=== PATIENT | female | born 1980 | race Caucasian/White ===

== ENCOUNTER 2017-06-18 23:17 | Inpatient (IN) | payer MEDICAID, OTHER ==
[~2017-06-18] VITALS: Ht 157.5 cm; Wt 67.8 kg
[2017-06-18] MEDS ORDERED: ceFAZolin 2 GM PREMIX 50 ML ONE (23:20)
[2017-06-18] MEDS ORDERED: MORPHINE SULFATE 8 MG/ML INJ ONE ×2 (23:20→23:48)
[2017-06-18] MEDS ORDERED: ONDANSETRON HCL 4 MG/2 ML VIAL ONE (23:20)
[2017-06-18] MEDS ORDERED: DIPHTH/TETANUS/ACEL PERTUSSIS (BOOSTER) 0.5 ML VIAL/PFS IM ONE ×2 (23:20→23:47)
[2017-06-18 23:27] VITALS: O2SAT 97
[2017-06-18 23:35] LABS: I-STAT POTASSIUM 3.1 MMOL/L (3.5-4.9); I-STAT SODIUM 142 MMOL/L (138-146)
[2017-06-18 23:37] LABS: BASOPHIL % 0.3 % (0.0-2.0); EOSINOPHIL # 0.1 TH/MM3 (0-0.4); HEMATOCRIT 40.5 % (35.0-46.0); HEMO FLAGS DIFF FINAL; LYMPH % 40.6 % (9.0-44.0); MEAN CELL VOLUME 86.9 FL (80.0-100.0); MEAN CORPUSCULAR HEMOGLOBIN 29.8 PG (27.0-34.0); MEAN CORPUSCULAR HGB CONC 34.3 % (32.0-36.0); MONO % 9.6 % (0.0-8.0); NEUT % 48.5 % (16.0-70.0); PLATELET COUNT 229 TH/MM3 (150-450); RED BLOOD COUNT 4.67 MIL/MM3 (4.00-5.30); RED CELL DISTRIBUTION WIDTH 12.4 % (11.6-17.2); WHITE BLOOD COUNT 12.4 TH/MM3 (4.0-11.0)
[2017-06-18] MEDS ORDERED: ONDANSETRON HCL 4 MG/2 ML VIAL IV ONE (23:45)
[2017-06-18 23:48] LABS: APTT (PATIENT) 23.8 SEC (24.3-30.1); INTERNATIONAL NORMALIZED RATIO 0.9 RATIO; PROTHROMBIN TIME - PATIENT 10.4 SEC (9.8-11.6)
[2017-06-18] MEDS ORDERED: VANCOMYCIN HCL 1000 MG VIAL ONE (23:48)
[2017-06-18] MEDS ORDERED: IOHEXOL 350 MG/ML 10 ML VIAL (for RAD DIAG) IVCONTRAST ONE (23:50)
[2017-06-18 23:56] LABS: BETA HCG QUANT LESS THAN 1 MIU/ML (0-5)
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
[2017-06-19] VITALS (8 sets, daily range): BP systolic 100–136; BP diastolic 59–103; PULSE 75–90; RESP 16–20; TEMP 98–99; O2SAT 98–100
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
[2017-06-19 00:12] LABS: ALCOHOL LESS THAN 3 MG/DL (0-5)
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
[2017-06-19] MEDS ORDERED: BUPR4MIS SL (00:13)
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
[2017-06-19 00:32] LABS: BLOOD, URINE NEG (NEG); GLUCOSE,URINE NEG (NEG); KETONE, URINE NEG (NEG); NITRITE,URINE NEG (NEG); SQUAMOUS EPITHELIAL CELL URINE 1 /hpf (0-5); URINE COLOR LIGHT-YELLOW (YELLW/STRAW)
[2017-06-19 00:37] LABS: COMMENT (UR) CATH-CULT NOT IND; CULTURE IF INDICATED CATH CULTURE NOT IND
[2017-06-19] MEDS ORDERED: HYDROmorphone HCL PF 1 MG/ML VIAL ONE ×2 (01:22→03:12)
[2017-06-19] MEDS ORDERED: PROPOFOL 200 MG/20 ML AMP ONE (01:51)
[2017-06-19] MEDS ORDERED: SILVER SULFADIAZINE 1% CR 50 GM JAR ONE (02:01)
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
--- NOTE | 2017-06-19 05:04 | RADRPT ---
EXAM DATE/TIME: 06/19/2017 00:00 [facility] COMPARISON: SHOULDER LEFT (1 VW), June 18, 2017, 23:10. INDICATIONS : Post reduction left shoulder. MEDICAL HISTORY : None. SURGICAL HISTORY : None. ENCOUNTER: Initial ACUITY: 1 day PAIN SCORE: 4/10 LOCATION: Left shoulder. FINDINGS: 2 views left shoulder show successful reduction of the previously seen anterior dislocation. Fracture of the greater tuberosity noted. CONCLUSION: Successful reduction of the previously seen anterior dislocation. Acute fracture of the greater tuber osity. Bautista Zavala Jr., MD on June 19, 2017 at 5:01 Board Certified Radiologist. This report was verified electronically.
[2017-06-19] MEDS ORDERED: NALOXONE HCL 0.4 MG/ML AMP IV PUSH PRN (05:15)
[2017-06-19] MEDS ORDERED: HEPARIN SODIUM - SQ 10,000 UNITS/ML VIAL SQ SCH (05:15)
[2017-06-19] MEDS ORDERED: MORPHINE SULFATE 4 MG/ML INJ IV PUSH PRN (05:15)
[2017-06-19] MEDS ORDERED: ONDANSETRON HCL 4 MG/2 ML VIAL IV PRN (05:15)
[2017-06-19] MEDS ORDERED: oxyCODONE/ACETAMINOPHEN 5 MG/325 MG TAB PO PRN (05:15)
[2017-06-19] MEDS ORDERED: Post-op Orders (for Pharmacy) MISC XX ONE ×2 (05:15→13:45)
[2017-06-19] MEDS: SODIUM CHLOR 0.9% 1000 ML INJ 1,000 ML IV SCH ×2 (05:25→15:03)
[2017-06-19] MEDS ORDERED: POVIDONE IODINE 5% (ANTISEPSIS KIT) 4 APPLICATIONS EACH NARE PRN (07:00)
[2017-06-19] MEDS ORDERED: METOPROLOL TARTRATE 25 MG TAB PO PRN (07:00)
[2017-06-19] MEDS ORDERED: CHLORHEXIDINE GLUCONATE 2 % 1 PACK (2 CLOTHS) TOPICAL PRN (07:00)
[2017-06-19] MEDS ORDERED: LACTATED RINGER'S 1000 ML IV PRN (07:00)
[2017-06-19] MEDS ORDERED: INSULIN HUMAN REGULAR 1,000 UNITS/10 ML VIAL SQ PRN (07:00)
[2017-06-19] MEDS ORDERED: SODIUM CHLORID 0.9% 500 ML IV PRN (07:00)
[2017-06-19] MEDS ORDERED: LACTULOSE SYRUP 20 GM/30 ML CUP PO PRN (07:15)
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
[2017-06-19] MEDS: DOCUSATE SODIUM 50 MG/SENNA 8.6 MG TAB PO SCH ×2 (07:58→20:41)
[2017-06-19] MEDS: FAMOTIDINE 20 MG TAB PO SCH ×2 (07:58→20:41)
[2017-06-19] MEDS: diphenhydrAMINE HCL 50 MG/ML VIAL IV PRN ×2 (08:36→23:28)
[2017-06-19] MEDS: SODIUM CHLORIDE 0.9% FLUSH 10 ML FLUSH IV FLUSH SCH ×2 (08:36→20:46)
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
[2017-06-19] MEDS ORDERED: SODIUM CHLORIDE 0.9% 20 ML VIAL IV ONE (09:41)
[2017-06-19] MEDS ORDERED: PHENYLEPH/NS 1000 MCG/10 ML SYR IV ONE (09:41)
[2017-06-19] MEDS ORDERED: PROPOFOL 200 MG/20 ML AMP IV ONE (09:41)
[2017-06-19] MEDS ORDERED: LIDOCAINE HCL 1% PF 5 ML AMPULE OTHER ONE (09:41)
[2017-06-19] MEDS ORDERED: DEXAMETHASONE SOD PHOS 4 MG/ML VIAL IV ONE (09:41)
[2017-06-19] MEDS ORDERED: MIDAZOLAM HCL 2 MG/2 ML VIAL IV ONE (09:41)
[2017-06-19] MEDS ORDERED: ONDANSETRON HCL 4 MG/2 ML VIAL IV PUSH ONE (09:41)
[2017-06-19] MEDS ORDERED: KETOROLAC TROMETHAMINE 60 MG/2 ML (IM) VIAL IM ONE (09:41)
[2017-06-19] MEDS ORDERED: ROCURONIUM INJ 50 MG/5 ML SYRINGE IV PUSH ONE (09:41)
[2017-06-19] MEDS ORDERED: NEOSTIGMINE 3 MG/3 ML SYR IV ONE (09:51)
[2017-06-19] MEDS ORDERED: GLYCOPYRROLATE 1 MG/5 ML SYRINGE IV PUSH ONE (09:51)
[2017-06-19] MEDS ORDERED: LACTATED RINGER'S 1000 ML INJ 1,000 ML IV ONE (10:03)
[2017-06-19] MEDS ORDERED: GENTAMICIN SULFATE 80 MG/2 ML VIAL ONE (12:16)
[2017-06-19] MEDS ORDERED: HYDROmorphone HCL PF 2 MG/ML VIAL ONE (12:35)
[2017-06-19] MEDS ORDERED: DEXAMETHASONE SOD PHOS 4 MG/ML VIAL ONE (12:49)
[2017-06-19] MEDS ORDERED: MIDAZOLAM HCL 2 MG/2 ML VIAL ONE (12:49)
[2017-06-19] MEDS ORDERED: FAMOTIDINE 20 MG/2 ML VIAL ONE (12:49)
[2017-06-19] MEDS ORDERED: ceFAZolin 2 GM PREMIX 50 ML ONE (12:54)
[2017-06-19] MEDS ORDERED: BACITRACIN TOP OINT 15 GM TUBE ONE (13:39)
[2017-06-19] MEDS ORDERED: SODIUM CHLORIDE 0.9% FLUSH 5 ML FLUSH IVF PRN (13:45)
--- NOTE | 2017-06-19 13:45 | PD.OP ---
cc: Giuseppe Israel MD Operative Report Date of Surgery: Jun 19, 2017 Preoperative Diagnosis: Left tibial plateau fracture, left tibia shaft fracture Postoperative Diagnosis: Procedure: Closed reduction of left tibia fractures with manipulation, external fixation left leg, compartment pressure checks left leg Surgeon: Giuseppe Israel Plant Buyer(s): Hamlet Mandel PA-C The surgical procedure was assisted by my physician litigation legal assistant. My P.A. presence was necessary throughout this case for the manipulation and positioning of the surgical extremity. My P.A. was assisting me throughout the duration of this procedure. The skill set of a physician litigation legal assistant was medically necessary to complete this procedure. During the surgical case the technical staff engineer was working at the back table and the physician litigation legal assistant was directly assisting me. Operation and Findings: This patient sustained an injury resulting in comminuted fractures of [left tibial plateau and left tibia shaft]. Patient was seen and evaluated preoperatively and found to have too much swelling to proceed with open reduction internal fixation. Risk and benefits of surgery were discussed in depth with patient and informed consent was confirmed. Surgical site was marked. Patient was brought to operating room and placed on the OR table. Patient was given IV sedation and GETA. Patient received IV antibiotics and timeout procedure was performed. Procedure began with compartment pressure checks of the left calf. The patient had moderate swelling of the calf. The anterior, lateral, and posterior compartments were checked. All compartments were under 25 mmHg of pressure. At this point the patient does not appear to have compartment syndrome. Next the operative leg was prepped with alcohol followed by Hibiclens and draped in the usual sterile fashion. Two small incisions were made along the anterior femur and the tibia. Soft tissue was dissected bluntly. Cannulas were placed down to the cortex of bone. Pin sites were predrilled. Synthes DUDLEY-coated pins were placed into the femur and tibia. Fluoroscopy was used to confirm appropriate pin placement. An external fixator construct was now created with clamps and bars. Next attention was turned to reduction. Traction was applied. Fracture was manipulated. Good alignment of the fracture was obtained. Fluoroscopy was used to confirm appropriate alignment of fracture. The external fixator was now tightened to hold reduction. Sterile dressings were applied. Patient was awakened and transferred to recovery room in stable condition. The soft tissue was reevaluated. Patient did have swelling around the knee and calf but compartments were soft and compressible with no signs of compartment syndrome. Giuseppe Israel MD Jun 19, 2017 13:45
[2017-06-19] MEDS ORDERED: DO NOT ADM ANY ANTICOAGULANT DRUGS PRN (14:04)
[2017-06-19] MEDS ORDERED: *morphine SULFATE 8 MG/ML PERIprocedure ONLY ONE ×2 (14:20→15:22)
[2017-06-19] MEDS ORDERED: *MEPERIDINE 25 MG INJ VIAL PERIprocedural Use ONLY ONE (14:28)
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
[2017-06-19] MEDS: LACTATED RINGER'S 1000 ML INJ 1,000 ML IV SCH (15:40)
[2017-06-19] MEDS: KETOROLAC TROMETHAMINE 30 MG/ML (IVP) VIAL IVP SCH ×2 (15:48→22:21)
--- NOTE | 2017-06-19 16:21 | OTSOAPIP ---
TIME SESSION COMPLETED: PM RECEIVED OCCUPATIONAL THERAPY ORDERS. PATIENT IS OFF FLOOR FOR SURGERY. WILL FOLLOW UP WITH PATIENT TOMORROW. INTERDISCIPLINARY COMMUNICATION: REVIEWED ELECTRONIC MEDICAL RECORD Therapist: Denita Richards OTR/[place] Signature on file
[2017-06-19] MEDS: ACETAMINOPHEN/HYDROcodone 325 MG/10 MG TAB PO PRN (18:51)
[2017-06-19] MEDS: MORPHINE SULFATE 4 MG/ML INJ IV PUSH PRN (20:45)
[2017-06-19] MEDS: SODIUM CHLORIDE 0.9% FLUSH 5 ML FLUSH IVF SCH (20:46)
[2017-06-19 20:54] LABS: AUTOMATED NEUTROPHIL # 8.3 TH/MM3 (1.8-7.7); HEMATOCRIT 34.2 % (35.0-46.0); HEMO FLAGS DIFF FINAL; LYMPHOCYTE # 0.7 TH/MM3 (1.0-4.8); MEAN CELL VOLUME 87.2 FL (80.0-100.0); MEAN CORPUSCULAR HEMOGLOBIN 29.6 PG (27.0-34.0); MEAN CORPUSCULAR HGB CONC 33.9 % (32.0-36.0); PLATELET COUNT 168 TH/MM3 (150-450); RED BLOOD COUNT 3.92 MIL/MM3 (4.00-5.30); RED CELL DISTRIBUTION WIDTH 12.4 % (11.6-17.2); WHITE BLOOD COUNT 9.5 TH/MM3 (4.0-11.0)
[2017-06-19 21:21] LABS: BICARBONATE 23.9 MEQ/L (21.0-32.0); POTASSIUM 3.7 MEQ/L (3.5-5.1)
[2017-06-20] MEDS: SODIUM CHLOR 0.9% 1000 ML INJ 1,000 ML IV SCH ×3 (01:03→21:03)
[2017-06-20] MEDS: LACTATED RINGER'S 1000 ML INJ 1,000 ML IV SCH ×2 (02:10→14:40)
[2017-06-20 04:23] VITALS: BP 102/60; PULSE 74; RESP 18; TEMP 97.7; O2SAT 98
[2017-06-20] MEDS: KETOROLAC TROMETHAMINE 30 MG/ML (IVP) VIAL IVP SCH ×3 (06:21→22:15)
--- NOTE | 2017-06-20 06:33 | PD.ORT.PN ---
Subjective Subjective Remarks POD 1 s/p exfix left tibial shaft and plateau fracture s/p left greater tuberosity fracture of humerus doing well. pain controlled. resting comfortably. Objective Vitals Vital Signs Date Time Temp Pulse Resp B/P (MAP) Pulse Ox O2 Delivery O2 Flow Rate FiO2 06/20/17 04:23 97.7 74 18 102/60 (74) 98 06/19/17 23:23 98.5 79 18 100/59 (73) 98 06/19/17 19:40 98.1 75 18 104/64 (77) 98 06/19/17 16:00 78 16 108/70 (83) 98 Room Air 06/19/17 16:00 98.0 76 16 113/75 (88) 98 06/19/17 15:30 80 16 121/79 (93) 99 Room Air 06/19/17 15:00 80 16 118/72 (87) 98 Room Air 06/19/17 14:45 82 16 119/79 (92) 98 Room Air 06/19/17 14:30 84 16 118/81 (93) 98 Room Air 06/19/17 14:15 84 16 119/80 (93) 100 Room Air 06/19/17 14:04 98.3 86 16 120/79 (93) 100 06/19/17 08:00 99.0 84 16 104/68 (80) 99 I/O 06/19/17 06/19/17 06/19/17 06/20/17 06/20/17 06/20/17 07:00 15:00 23:00 07:00 15:00 23:00 Intake Total 1000 ml 700 ml 480 ml Output Total 600 ml 2570 ml 1700 ml Balance 400 ml -1870 ml -1220 ml Intake Oral 480 ml IV Total 1000 ml Other 700 ml Output Urine Total 600 ml 2550 ml 1700 ml Estimated Blood Loss 20 ml # Voids 1 # Bowel Movements 0 Result Diagram: 06/19/17203106/19/172031 Imaging Last 24 hours Impressions Shoulder X-Ray 06/19/17 0000 Signed Impressions: Service Date/Time: Monday, June 19, 2017 00:00 - CONCLUSION: Successful reduction of the previously seen anterior dislocation. Acute fracture of the greater tuberosity. Bautista Zavala Jr., MD Pelvis X-Ray 06/18/17 2328 Signed Impressions: Service Date/Time: Sunday, June 18, 2017 23:10 - CONCLUSION: Unremarkable examination of the pelvis. Bautista Zavala Jr., MD Head CT 06/18/172328 Signed Impressions: Service Date/Time: Sunday, June 18, 2017 23:40 - CONCLUSION: Normal examination. Bautista Zavala Jr., MD Chest X-Ray 06/18/172328 Signed Impressions: Service Date/Time: Sunday, June 18, 2017 23:10 - CONCLUSION: 1. Left proximal humeral fracture. 2. No acute intrathoracic abnormality. Bautista Zavala Jr., MD Chest CT 06/18/172328 Signed Impressions: Service Date/Time: Sunday, June 18, 2017 23:45 - CONCLUSION: 1. Acute fracture of the left proximal humerus partially seen. 2. No acute intrathoracic abnormality. Bautista Zavala Jr., MD Cervical Spine CT 06/18/172328 Signed Impressions: Service Date/Time: Sunday, June 18, 2017 23:40 - CONCLUSION: Normal examination. Bautista Zavala Jr., MD Abdomen/Pelvis CT 06/18/172328 Signed Impressions: Service Date/Time: Sunday, June 18, 2017 23:45 - CONCLUSION: 1. No acute outer mality. 2. Trace amount of free fluid within the cul-de-sac which is within the physiologic range. Bautista Zavala Jr., MD Objective Remarks LLE: +exfix. pin sites clean. NVI. no pain with dorsiflexion. LUE: +sling/swathe. NVI Assessment & Plan Assessment and Plan 1) Left Proximal Tibial Shaft Fx with Tibial Plateau Fx s/p exfix - POD 1 -NWB -pin care BID -elevate -Toradol -ice -plan for surgery when swelling improved 2) Left Proximal Humerus Fx with dislocation s/p Reduction and greater tuberosity fx -maintain sling/swathe -NWB Shreyas Gustafson Jun 20, 2017 06:33
[2017-06-20 06:56] LABS: AUTOMATED NEUTROPHIL # 9.8 TH/MM3 (1.8-7.7); BASOPHIL % 0.1 % (0.0-2.0); HEMATOCRIT 30.4 % (35.0-46.0); HEMO FLAGS DIFF FINAL; LYMPH % 9.9 % (9.0-44.0); LYMPHOCYTE # 1.2 TH/MM3 (1.0-4.8); MEAN CELL VOLUME 87.1 FL (80.0-100.0); MEAN CORPUSCULAR HEMOGLOBIN 30.1 PG (27.0-34.0); MEAN CORPUSCULAR HGB CONC 34.5 % (32.0-36.0); MONO % 9.5 % (0.0-8.0); NEUT % 80.5 % (16.0-70.0); PLATELET COUNT 156 TH/MM3 (150-450); RED BLOOD COUNT 3.49 MIL/MM3 (4.00-5.30); RED CELL DISTRIBUTION WIDTH 12.4 % (11.6-17.2); WHITE BLOOD COUNT 12.2 TH/MM3 (4.0-11.0)
[2017-06-20 07:11] LABS: POTASSIUM 3.6 MEQ/L (3.5-5.1)
[2017-06-20 08:00] VITALS: BP 106/57; PULSE 70; RESP 16; TEMP 98.7; O2SAT 99
[2017-06-20] MEDS: SODIUM CHLORIDE 0.9% FLUSH 10 ML FLUSH IV FLUSH SCH ×2 (08:12→20:29)
[2017-06-20] MEDS: FAMOTIDINE 20 MG TAB PO SCH ×2 (08:12→20:29)
[2017-06-20] MEDS: MORPHINE SULFATE 4 MG/ML INJ IV PUSH PRN ×5 (08:12→23:37)
[2017-06-20] MEDS: DOCUSATE SODIUM 50 MG/SENNA 8.6 MG TAB PO SCH ×2 (08:12→20:29)
[2017-06-20] MEDS ORDERED: RESP: ALBUTEROL 2.5 MG/IPRATROPIUM 0.5 MG NEB (PRN) NEB (08:15)
[2017-06-20] MEDS: SODIUM CHLORIDE 0.9% FLUSH 5 ML FLUSH IVF SCH ×2 (09:00→20:30)
[2017-06-20 09:28] VITALS: O2SAT 97
--- NOTE | 2017-06-20 10:54 | HHI.PR ---
Subjective Subjective Notes Pain controlled Eating well Objective Vitals/I&O Vital Signs Date Time Temp Pulse Resp B/P (MAP) Pulse Ox O2 Delivery O2 Flow Rate FiO2 06/20/17 09:28 97 06/20/17 08:00 98.7 70 16 106/57 (73) 06/19/17 16:00 Room Air 06/19/17 03:20 2.00 Labs Laboratory Tests Test 06/19/17 20:32 06/20/17 06:07 White Blood Count 9.5 12.2 Red Blood Count 3.92 3.49 Hemoglobin 11.6 10.5 Hematocrit 34.2 30.4 Mean Corpuscular Volume 87.2 87.1 Mean Corpuscular Hemoglobin 29.6 30.1 Mean Corpuscular Hemoglobin Concent 33.9 34.5 Red Cell Distribution Width 12.4 12.4 Platelet Count 168 156 Mean Platelet Volume 8.0 8.7 Neutrophils (%) (Auto) 88.0 80.5 Lymphocytes (%) (Auto) 7.0 9.9 Monocytes (%) (Auto) 5.0 9.5 Eosinophils (%) (Auto) 0.0 0.0 Basophils (%) (Auto) 0.0 0.1 Neutrophils # (Auto) 8.3 9.8 Lymphocytes # (Auto) 0.7 1.2 Monocytes # (Auto) 0.5 1.2 Eosinophils # (Auto) 0.0 0.0 Basophils # (Auto) 0.0 0.0 CBC Comment DIFF FINAL DIFF FINAL Differential Comment Blood Urea Nitrogen 7 10 Creatinine 0.83 0.68 Random Glucose 141 131 Calcium Level 8.2 7.7 Sodium Level 140 140 Potassium Level 3.7 3.6 Chloride Level 109 109 Carbon Dioxide Level 23.9 26.0 Anion Gap 7 5 Estimat Glomerular Filtration Rate 78 98 Radiology Last Impressions Shoulder X-Ray 06/19/171999 Signed Impressions: Service Date/Time: Monday, June 19, 2017 14:20 - CONCLUSION: 1. Minimally displaced fracture through the proximal left humerus. Cristi Rapp MD Upper Extremity CT 06/19/17 6194 Signed Impressions: Service Date/Time: Monday, June 19, 2017 03:42 - CONCLUSION: 1. Comminuted proximal humeral fracture without dislocation. 5 mm of separation of the fracture fragments. Bautista Zavala Jr., MD Lower Extremity CT 06/19/17 0444 Signed Impressions: Service Date/Time: Monday, June 19, 2017 03:47 - CONCLUSION: 1. Comminuted fractures involving the lateral tibial plateau as well as the proximal tibial metadiaphysis and fibular diaphysis. Details given above. 2. Hemarthrosis. Bautista Zavala Jr., MD Tibia/Fibula X-Ray 06/19/17 0000 Signed Impressions: Service Date/Time: Monday, June 19, 2017 13:36 - CONCLUSION: 1. Comminuted fracture involving the proximal tibia and fibula. Cristi Rapp MD Pelvis X-Ray 06/18/172328 Signed Impressions: Service Date/Time: Sunday, June 18, 2017 23:10 - CONCLUSION: Unremarkable examination of the pelvis. Bautista Zavala Jr., MD Head CT 06/18/172328 Signed Impressions: Service Date/Time: Sunday, June 18, 2017 23:40 - CONCLUSION: Normal examination. Bautista Zavala Jr., MD Chest X-Ray 06/18/172328 Signed Impressions: Service Date/Time: Sunday, June 18, 2017 23:10 - CONCLUSION: 1. Left proximal humeral fracture. 2. No acute intrathoracic abnormality. Bautista Zavala Jr., MD Chest CT 06/18/172328 Signed Impressions: Service Date/Time: Sunday, June 18, 2017 23:45 - CONCLUSION: 1. Acute fracture of the left proximal humerus partially seen. 2. No acute intrathoracic abnormality. Bautista Zavala Jr., MD Cervical Spine CT 06/18/172328 Signed Impressions: Service Date/Time: Sunday, June 18, 2017 23:40 - CONCLUSION: Normal examination. Bautista Zavala Jr., MD Abdomen/Pelvis CT 06/18/172328 Signed Impressions: Service Date/Time: Sunday, June 18, 2017 23:45 - CONCLUSION: 1. No acute outer mality. 2. Trace amount of free fluid within the cul-de-sac which is within the physiologic range. Bautista Zavala Jr., MD Narrative Exam GENERAL: 36 year old well-nourished, well developed female lying in bed. SKIN: Warm and dry. HEAD: Atraumatic. Normocephalic. ENT: No nasal bleeding or discharge. Mucous membranes pink and moist. NECK: Trachea midline. No JVD. CARDIOVASCULAR: Regular rate and rhythm. RESPIRATORY: No accessory muscle use. Lungs clear to auscultation. Breath sounds equal bilaterally. GASTROINTESTINAL: Abdomen soft, non-tender, nondistended. + BS. MUSCULOSKELETAL: Extremities without cyanosis, or edema. LLE ex-fix in place, pin sites clean. LUE sling in place. MAEW. + peripheral pulses x4. NEUROLOGICAL: Awake and alert. Normal speech. A/P Assessment and Plan INJURIES: LEFT tib/fib fx LEFT proximal humerus fx LEFT shoulder dislocation 06/19: Reduction of LEFT shoulder 06/19: Closed reduction of left tibia fractures with manipulation, ex-fix left leg, compartment pressure checks left leg PMHx: Chronic pain (on Suboxone), Asthma Diet: Regular Pulm: IS, PRN nebs Pain: [place], Morphine IV, Toradol Activity: OOB. PT and OT ordered (NWB LUE, NWB LLE) GI: Pepcid Bowel: Lexus-colace. Lactulose PRN. LBM 0 DVT: SCDs, Lovenox 40 QD LEFT tib/fib fx Orthopedics consulted 06/19: Closed reduction of left tibia fractures with manipulation, ex-fix left leg, compartment pressure checks left leg Pain control Pin care BID Ice Elevation OOB- PT and OT ordered Ortho planning surgery later this week LEFT proximal humerus fx, LEFT shoulder dislocation Orthopedics consulted Nonoperative management 06/19: Reduction of LEFT shoulder Pain control OOB- PT and OT ordered Maintain sling and swath Plan of care discussed with patient at bedside. Case management consulted to assist with discharge planning. Caleb Maguire Jun 20, 2017 10:54
[2017-06-20 12:00] VITALS: BP 127/69; PULSE 84; RESP 16; TEMP 98.7; O2SAT 100
[2017-06-20] MEDS: SODIUM CHLORIDE 0.9% FLUSH 10 ML FLUSH IV FLUSH PRN ×2 (12:29→17:35)
[2017-06-20] MEDS: ENOXAPARIN SODIUM 40 MG/0.4 ML SYRINGE SQ SCH ×2 (13:45→14:27)
[2017-06-20] MEDS: diphenhydrAMINE HCL 50 MG/ML VIAL IV PRN (14:27)
[2017-06-20 15:40] VITALS: BP 116/65; PULSE 86; RESP 16; TEMP 98; O2SAT 97
[2017-06-20] MEDS ORDERED: SENN1TAB PO (16:26)
[2017-06-20] MEDS: ACETAMINOPHEN/HYDROcodone 325 MG/10 MG TAB PO PRN ×2 (19:35→22:30)
[2017-06-20 20:04] VITALS: BP 103/58; PULSE 90; RESP 18; TEMP 98.4; O2SAT 98
[2017-06-21] VITALS: BP 107/71; PULSE 99; RESP 16; TEMP 97.9; O2SAT 98
[2017-06-21] MEDS: diphenhydrAMINE HCL 50 MG/ML VIAL IV PRN ×2 (02:11→16:00)
[2017-06-21] MEDS: LACTATED RINGER'S 1000 ML INJ 1,000 ML IV SCH (03:10)
[2017-06-21] MEDS: MORPHINE SULFATE 4 MG/ML INJ IV PUSH PRN ×2 (04:47→07:48)
[2017-06-21] MEDS: KETOROLAC TROMETHAMINE 30 MG/ML (IVP) VIAL IVP SCH ×3 (06:17→22:15)
--- NOTE | 2017-06-21 06:36 | PD.ORT.PN ---
Subjective Subjective Remarks Pain controlled with no new complaints Objective Vitals Vital Signs Date Time Temp Pulse Resp B/P (MAP) Pulse Ox O2 Delivery O2 Flow Rate FiO2 06/21/17 00:00 97.9 99 16 107/71 (83) 98 06/20/17 20:04 98.4 90 18 103/58 (73) 98 06/20/17 15:40 98.0 86 16 116/65 (82) 97 06/20/17 12:00 98.7 84 16 127/69 (88) 100 06/20/17 09:28 97 06/20/17 08:00 98.7 70 16 106/57 (73) 99 I/O 06/20/17 06/20/17 06/20/17 06/21/17 06/21/17 06/21/17 07:00 15:00 23:00 07:00 15:00 23:00 Intake Total 1092 ml 600 ml 350 ml Output Total 450 ml Balance 642 ml 600 ml 350 ml Intake Oral 240 ml 600 ml 350 ml IV Total 852 ml Output Urine Total 450 ml # Voids 2 2 # Bowel Movements 0 0 0 Result Diagram: 06/20/17 0607 06/20/17 0607 Imaging Last 72 hours Impressions Shoulder X-Ray 06/19/171999 Signed Impressions: Service Date/Time: Monday, June 19, 2017 14:20 - CONCLUSION: 1. Minimally displaced fracture through the proximal left humerus. Cristi Rapp MD Upper Extremity CT 06/19/17443 Signed Impressions: Service Date/Time: Monday, June 19, 2017 03:42 - CONCLUSION: 1. Comminuted proximal humeral fracture without dislocation. 5 mm of separation of the fracture fragments. Bautista Zavaal Jr., MD Lower Extremity CT 06/19/174 Signed Impressions: Service Date/Time: Monday, June 19, 2017 03:47 - CONCLUSION: 1. Comminuted fractures involving the lateral tibial plateau as well as the proximal tibial metadiaphysis and fibular diaphysis. Details given above. 2. Hemarthrosis. Bautista Zavala Jr., MD Tibia/Fibula X-Ray 06/19/17 0000 Signed Impressions: Service Date/Time: Monday, June 19, 2017 13:36 - CONCLUSION: 1. Comminuted fracture involving the proximal tibia and fibula. Cristi Rapp MD Shoulder X-Ray 06/19/17 0000 Signed Impressions: Service Date/Time: Monday, June 19, 2017 00:00 - CONCLUSION: Successful reduction of the previously seen anterior dislocation. Acute fracture of the greater tuberosity. Bautista Zavala Jr., MD Pelvis X-Ray 06/18/172328 Signed Impressions: Service Date/Time: Sunday, June 18, 2017 23:10 - CONCLUSION: Unremarkable examination of the pelvis. Bautista Zavala Jr., MD Head CT 06/18/172328 Signed Impressions: Service Date/Time: Sunday, June 18, 2017 23:40 - CONCLUSION: Normal examination. Bautista Zavala Jr., MD Chest X-Ray 06/18/172328 Signed Impressions: Service Date/Time: Sunday, June 18, 2017 23:10 - CONCLUSION: 1. Left proximal humeral fracture. 2. No acute intrathoracic abnormality. Bautista Zavala Jr., MD Chest CT 06/18/172328 Signed Impressions: Service Date/Time: Sunday, June 18, 2017 23:45 - CONCLUSION: 1. Acute fracture of the left proximal humerus partially seen. 2. No acute intrathoracic abnormality. Bautista Zavala Jr., MD Cervical Spine CT 06/18/172328 Signed Impressions: Service Date/Time: Sunday, June 18, 2017 23:40 - CONCLUSION: Normal examination. Bautista Zavala Jr., MD Abdomen/Pelvis CT 06/18/172328 Signed Impressions: Service Date/Time: Sunday, June 18, 2017 23:45 - CONCLUSION: 1. No acute outer mality. 2. Trace amount of free fluid within the cul-de-sac which is within the physiologic range. Bautista Zavala Jr., MD Last 24 hours Impressions Shoulder X-Ray 06/19/17 0000 Signed Impressions: Service Date/Time: Monday, June 19, 2017 00:00 - CONCLUSION: Successful reduction of the previously seen anterior dislocation. Acute fracture of the greater tuberosity. Bautista Zavala Jr., MD Pelvis X-Ray 06/18/172328 Signed Impressions: Service Date/Time: Sunday, June 18, 2017 23:10 - CONCLUSION: Unremarkable examination of the pelvis. Bautista Zavala Jr., MD Head CT 06/18/172328 Signed Impressions: Service Date/Time: Sunday, June 18, 2017 23:40 - CONCLUSION: Normal examination. Bautista Zavala Jr., MD Chest X-Ray 06/18/172328 Signed Impressions: Service Date/Time: Sunday, June 18, 2017 23:10 - CONCLUSION: 1. Left proximal humeral fracture. 2. No acute intrathoracic abnormality. Bautista Zavala Jr., MD Chest CT 06/18/172328 Signed Impressions: Service Date/Time: Sunday, June 18, 2017 23:45 - CONCLUSION: 1. Acute fracture of the left proximal humerus partially seen. 2. No acute intrathoracic abnormality. Bautista Zavala Jr., MD Cervical Spine CT 06/18/172328 Signed Impressions: Service Date/Time: Sunday, June 18, 2017 23:40 - CONCLUSION: Normal examination. Bautista Zavala Jr., MD Abdomen/Pelvis CT 06/18/172328 Signed Impressions: Service Date/Time: Sunday, June 18, 2017 23:45 - CONCLUSION: 1. No acute outer mality. 2. Trace amount of free fluid within the cul-de-sac which is within the physiologic range. Bautista Zavala Jr., MD Objective Remarks LLE: +exfix. pin sites clean. NVI. Swelling +2 with compartment semi-soft .no pain with dorsiflexion. LUE: +sling/swathe. NVI Assessment & Plan Assessment and Plan 1) Left Proximal Tibial Shaft Fx with Tibial Plateau Fx s/p exfix - POD 2 -NWB -pin care BID -elevate -Toradol -ice -Nothing by mouth after midnight, if swelling is improved we will move ahead with surgery tomorrow 2) Left Proximal Humerus Fx with dislocation s/p Reduction and greater tuberosity fx -Continue conservative measures and treatment -maintain sling/swathe -NWB Melvin Mandel Jr. Jun 21, 2017 06:36
[2017-06-21] MEDS: DOCUSATE SODIUM 50 MG/SENNA 8.6 MG TAB PO SCH ×2 (07:47→19:44)
[2017-06-21] MEDS: FAMOTIDINE 20 MG TAB PO SCH ×2 (07:47→19:44)
[2017-06-21] MEDS: SODIUM CHLORIDE 0.9% FLUSH 10 ML FLUSH IV FLUSH SCH ×2 (07:55→19:45)
[2017-06-21 08:00] VITALS: BP 99/62; PULSE 78; RESP 16; TEMP 97.8; O2SAT 100
[2017-06-21] MEDS: SODIUM CHLORIDE 0.9% FLUSH 5 ML FLUSH IVF SCH ×2 (09:00→19:45)
[2017-06-21] MEDS ORDERED: oxyCODONE/ACETAMINOPHEN 5 MG/325 MG TAB PO PRN (11:00)
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
[2017-06-21] MEDS: oxyCODONE/ACETAMINOPHEN 10 MG/325 MG TAB PO PRN ×3 (11:26→20:04)
[2017-06-21 12:00] VITALS: BP 117/68; PULSE 76; RESP 18; TEMP 97.3; O2SAT 98
[2017-06-21] MEDS: LACTULOSE SYRUP 20 GM/30 ML CUP PO SCH (12:49)
[2017-06-21] MEDS: ENOXAPARIN SODIUM 40 MG/0.4 ML SYRINGE SQ SCH (12:51)
[2017-06-21] MEDS: fentaNYL 50 MCG/HR PATCH T-DERMAL SCH (12:52)
[2017-06-21 16:00] VITALS: BP 84/52; PULSE 78; RESP 16; TEMP 97.9; O2SAT 98
[2017-06-21 19:00] VITALS: BP 102/59; PULSE 75; RESP 20; TEMP 98.4; O2SAT 99
[2017-06-21] MEDS: MAGNESIUM HYDROXIDE SUSP 30 ML CUP PO SCH (19:45)
[2017-06-21] MEDS ORDERED: CHLORHEXIDINE GLUCONATE 2 % 1 PACK (2 CLOTHS) TOPICAL PRN (22:00)
[2017-06-21] MEDS ORDERED: INSULIN HUMAN REGULAR 1,000 UNITS/10 ML VIAL SQ PRN (22:00)
[2017-06-21] MEDS ORDERED: POVIDONE IODINE 5% (ANTISEPSIS KIT) 4 APPLICATIONS EACH NARE PRN (22:00)
[2017-06-21] MEDS ORDERED: METOPROLOL TARTRATE 25 MG TAB PO PRN (22:00)
[2017-06-21] MEDS ORDERED: SODIUM CHLORID 0.9% 500 ML IV PRN (22:00)
[2017-06-21] MEDS ORDERED: LACTATED RINGER'S 1000 ML IV PRN (22:00)
[2017-06-22] VITALS: BP 94/52; PULSE 76; RESP 17; TEMP 97.2; O2SAT 96
[2017-06-22] MEDS: diphenhydrAMINE HCL 50 MG/ML VIAL IV PRN ×2 (01:08→18:04)
[2017-06-22 04:00] VITALS: BP 91/48; PULSE 70; RESP 15; TEMP 97.3; O2SAT 100
--- NOTE | 2017-06-22 06:33 | PD.ORT.PN ---
Subjective Subjective Remarks Pain controlled with no new complaints Objective Vitals Vital Signs Date Time Temp Pulse Resp B/P (MAP) Pulse Ox O2 Delivery O2 Flow Rate FiO2 06/22/17 04:00 97.3 70 15 91/48 (62) 100 06/22/17 00:00 97.2 76 17 94/52 (66) 96 06/21/17 19:00 98.4 75 20 102/59 (73) 99 06/21/17 17:00 16 06/21/17 16:00 97.9 78 16 84/52 (63) 98 06/21/17 13:57 16 06/21/17 13:57 16 06/21/17 12:00 97.3 76 18 117/68 (84) 98 06/21/17 08:00 97.8 78 16 99/62 (74) 100 I/O 06/21/17 06/21/17 06/21/17 06/22/17 06/22/17 06/22/17 07:00 15:00 23:00 07:00 15:00 23:00 Intake Total 350 ml 480 ml 480 ml 480 ml Balance 350 ml 480 ml 480 ml 480 ml Intake Oral 350 ml 480 ml 480 ml 480 ml # Voids 2 4 3 2 # Bowel Movements 0 0 1 0 Result Diagram: 06/20/17 0607 06/20/17 06 Imaging Last 72 hours Impressions Shoulder X-Ray 06/19/171999 Signed Impressions: Service Date/Time: Monday, June 19, 2017 14:20 - CONCLUSION: 1. Minimally displaced fracture through the proximal left humerus. Cristi Rapp MD Upper Extremity CT 06/19/17443 Signed Impressions: Service Date/Time: Monday, June 19, 2017 03:42 - CONCLUSION: 1. Comminuted proximal humeral fracture without dislocation. 5 mm of separation of the fracture fragments. Bautista Zavala Jr., MD Lower Extremity CT 06/19/17443 Signed Impressions: Service Date/Time: Monday, June 19, 2017 03:47 - CONCLUSION: 1. Comminuted fractures involving the lateral tibial plateau as well as the proximal tibial metadiaphysis and fibular diaphysis. Details given above. 2. Hemarthrosis. Bautista Zavala Jr., MD Tibia/Fibula X-Ray 06/19/17 0000 Signed Impressions: Service Date/Time: Monday, June 19, 2017 13:36 - CONCLUSION: 1. Comminuted fracture involving the proximal tibia and fibula. Cristi Rapp MD Shoulder X-Ray 06/19/17 0000 Signed Impressions: Service Date/Time: Monday, June 19, 2017 00:00 - CONCLUSION: Successful reduction of the previously seen anterior dislocation. Acute fracture of the greater tuberosity. Bautista aZvala Jr., MD Pelvis X-Ray 06/18/172328 Signed Impressions: Service Date/Time: Sunday, June 18, 2017 23:10 - CONCLUSION: Unremarkable examination of the pelvis. Bautista Zavala Jr., MD Head CT 06/18/172328 Signed Impressions: Service Date/Time: Sunday, June 18, 2017 23:40 - CONCLUSION: Normal examination. Bautista Zavala Jr., MD Chest X-Ray 06/18/172328 Signed Impressions: Service Date/Time: Sunday, June 18, 2017 23:10 - CONCLUSION: 1. Left proximal humeral fracture. 2. No acute intrathoracic abnormality. Bautista Zavala Jr., MD Chest CT 06/18/172328 Signed Impressions: Service Date/Time: Sunday, June 18, 2017 23:45 - CONCLUSION: 1. Acute fracture of the left proximal humerus partially seen. 2. No acute intrathoracic abnormality. Bautista Zavala Jr., MD Cervical Spine CT 06/18/172328 Signed Impressions: Service Date/Time: Sunday, June 18, 2017 23:40 - CONCLUSION: Normal examination. Bautista Zavala Jr., MD Abdomen/Pelvis CT 06/18/172328 Signed Impressions: Service Date/Time: Sunday, June 18, 2017 23:45 - CONCLUSION: 1. No acute outer mality. 2. Trace amount of free fluid within the cul-de-sac which is within the physiologic range. Bautista Zavala Jr., MD Last 24 hours Impressions Shoulder X-Ray 06/19/17 0000 Signed Impressions: Service Date/Time: Monday, June 19, 2017 00:00 - CONCLUSION: Successful reduction of the previously seen anterior dislocation. Acute fracture of the greater tuberosity. Bautista Zavala Jr., MD Pelvis X-Ray 06/18/172328 Signed Impressions: Service Date/Time: Sunday, June 18, 2017 23:10 - CONCLUSION: Unremarkable examination of the pelvis. Bautista Zavala Jr., MD Head CT 06/18/172328 Signed Impressions: Service Date/Time: Sunday, June 18, 2017 23:40 - CONCLUSION: Normal examination. Bautista Zavala Jr., MD Chest X-Ray 06/18/172328 Signed Impressions: Service Date/Time: Sunday, June 18, 2017 23:10 - CONCLUSION: 1. Left proximal humeral fracture. 2. No acute intrathoracic abnormality. Bautista Zavala Jr., MD Chest CT 06/18/172328 Signed Impressions: Service Date/Time: Sunday, June 18, 2017 23:45 - CONCLUSION: 1. Acute fracture of the left proximal humerus partially seen. 2. No acute intrathoracic abnormality. Bautista Zavala Jr., MD Cervical Spine CT 06/18/172328 Signed Impressions: Service Date/Time: Sunday, June 18, 2017 23:40 - CONCLUSION: Normal examination. Bautista Zavala Jr., MD Abdomen/Pelvis CT 06/18/172328 Signed Impressions: Service Date/Time: Sunday, June 18, 2017 23:45 - CONCLUSION: 1. No acute outer mality. 2. Trace amount of free fluid within the cul-de-sac which is within the physiologic range. Bautista Zavala Jr., MD Objective Remarks LLE: +exfix. pin sites clean. NVI. Swelling +2 with compartment semi-soft .no pain with dorsiflexion. LUE: +sling/swathe. NVI Assessment & Plan Assessment and Plan 1) Left Proximal Tibial Shaft Fx with Tibial Plateau Fx s/p exfix - POD 3 -NWB -pin care BID -elevate -Toradol Lovenox -ice -Resume diet-will plan on surgery next week when swelling has continued to decrease 2) Left Proximal Humerus Fx with dislocation s/p Reduction and greater tuberosity fx -Continue conservative measures and treatment -maintain sling/swathe -NWB Melvin Mandel Jr. Jun 22, 2017 06:33
[2017-06-22 08:00] VITALS: BP 96/51; PULSE 72; RESP 18; TEMP 98.6; O2SAT 100
[2017-06-22] MEDS: FAMOTIDINE 20 MG TAB PO SCH ×2 (08:09→22:35)
[2017-06-22] MEDS: oxyCODONE/ACETAMINOPHEN 10 MG/325 MG TAB PO PRN ×4 (08:09→22:35)
[2017-06-22] MEDS: DOCUSATE SODIUM 50 MG/SENNA 8.6 MG TAB PO SCH ×2 (08:09→22:35)
[2017-06-22] MEDS: LACTULOSE SYRUP 20 GM/30 ML CUP PO SCH (08:10)
[2017-06-22] MEDS: SODIUM CHLORIDE 0.9% FLUSH 5 ML FLUSH IVF SCH ×2 (08:14→22:36)
[2017-06-22] MEDS: SODIUM CHLORIDE 0.9% FLUSH 10 ML FLUSH IV FLUSH SCH ×2 (08:14→22:35)
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
[2017-06-22 12:00] VITALS: BP 116/55; PULSE 87; RESP 18; TEMP 97.1; O2SAT 98
[2017-06-22] MEDS: ENOXAPARIN SODIUM 40 MG/0.4 ML SYRINGE SQ SCH (14:12)
[2017-06-22 16:00] VITALS: BP 96/55; PULSE 79; RESP 18; TEMP 97.9; O2SAT 97
[2017-06-22 20:35] VITALS: BP 105/55; PULSE 85; RESP 18; TEMP 98.2; O2SAT 99
[2017-06-22] MEDS: MAGNESIUM HYDROXIDE SUSP 30 ML CUP PO SCH (22:36)
[2017-06-23] VITALS: BP 101/53; PULSE 96; RESP 20; TEMP 99.4; O2SAT 97
[2017-06-23] MEDS: diphenhydrAMINE HCL 50 MG/ML VIAL IV PRN ×3 (02:34→22:05)
[2017-06-23] MEDS: oxyCODONE/ACETAMINOPHEN 10 MG/325 MG TAB PO PRN ×3 (02:35→10:45)
[2017-06-23 08:00] VITALS: BP 97/50; PULSE 100; RESP 17; TEMP 100.5; O2SAT 96
--- NOTE | 2017-06-23 08:05 | PD.ORT.PN ---
Subjective Post Op Day #: 4 Subjective Remarks Patient is resting in bed with moderate pain to the LLE and mild pain to the LUE. Objective Vitals Vital Signs Date Time Temp Pulse Resp B/P (MAP) Pulse Ox O2 Delivery O2 Flow Rate FiO2 06/23/17 00:00 99.4 96 20 101/53 (69) 97 06/22/17 20:35 98.2 85 18 105/55 (72) 99 06/22/17 16:00 97.9 79 18 96/55 (69) 97 06/22/17 15:20 16 06/22/17 12:00 97.1 87 18 116/55 (75) 98 06/22/17 08:00 98.6 72 18 96/51 (66) 100 I/O 06/22/17 06/22/17 06/22/17 06/23/17 06/23/17 06/23/17 07:00 15:00 23:00 07:00 15:00 23:00 Intake Total 480 ml 120 ml 240 ml 240 ml Output Total 300 ml Balance 480 ml -180 ml 240 ml 240 ml Intake Oral 480 ml 120 ml 240 ml 240 ml Output Urine Total 300 ml # Voids 2 0 1 # Bowel Movements 0 0 0 Result Diagram: 06/20/17 0607 06/20/17 0607 Imaging Last 72 hours Impressions Shoulder X-Ray 06/19/171999 Signed Impressions: Service Date/Time: Monday, June 19, 2017 14:20 - CONCLUSION: 1. Minimally displaced fracture through the proximal left humerus. Cristi Rapp MD Upper Extremity CT 06/19/17443 Signed Impressions: Service Date/Time: Monday, June 19, 2017 03:42 - CONCLUSION: 1. Comminuted proximal humeral fracture without dislocation. 5 mm of separation of the fracture fragments. Bautista Zavala Jr., MD Lower Extremity CT 06/19/17443 Signed Impressions: Service Date/Time: Monday, June 19, 2017 03:47 - CONCLUSION: 1. Comminuted fractures involving the lateral tibial plateau as well as the proximal tibial metadiaphysis and fibular diaphysis. Details given above. 2. Hemarthrosis. Bautista Zavala Jr., MD Tibia/Fibula X-Ray 06/19/17 0000 Signed Impressions: Service Date/Time: Monday, June 19, 2017 13:36 - CONCLUSION: 1. Comminuted fracture involving the proximal tibia and fibula. Cristi Rapp MD Shoulder X-Ray 06/19/17 0000 Signed Impressions: Service Date/Time: Monday, June 19, 2017 00:00 - CONCLUSION: Successful reduction of the previously seen anterior dislocation. Acute fracture of the greater tuberosity. Bautista Zavala Jr., MD Pelvis X-Ray 06/18/172328 Signed Impressions: Service Date/Time: Sunday, June 18, 2017 23:10 - CONCLUSION: Unremarkable examination of the pelvis. Bautista Zavala Jr., MD Head CT 06/18/172328 Signed Impressions: Service Date/Time: Sunday, June 18, 2017 23:40 - CONCLUSION: Normal examination. Bautista Zavala Jr., MD Chest X-Ray 06/18/172328 Signed Impressions: Service Date/Time: Sunday, June 18, 2017 23:10 - CONCLUSION: 1. Left proximal humeral fracture. 2. No acute intrathoracic abnormality. Bautista Zavala Jr., MD Chest CT 06/18/172328 Signed Impressions: Service Date/Time: Sunday, June 18, 2017 23:45 - CONCLUSION: 1. Acute fracture of the left proximal humerus partially seen. 2. No acute intrathoracic abnormality. Bautista Zavala Jr., MD Cervical Spine CT 06/18/172328 Signed Impressions: Service Date/Time: Sunday, June 18, 2017 23:40 - CONCLUSION: Normal examination. Bautista Zavala Jr., MD Abdomen/Pelvis CT 06/18/172328 Signed Impressions: Service Date/Time: Sunday, June 18, 2017 23:45 - CONCLUSION: 1. No acute outer mality. 2. Trace amount of free fluid within the cul-de-sac which is within the physiologic range. Bautista Zavala Jr., MD Last 24 hours Impressions Shoulder X-Ray 06/19/17 0000 Signed Impressions: Service Date/Time: Monday, June 19, 2017 00:00 - CONCLUSION: Successful reduction of the previously seen anterior dislocation. Acute fracture of the greater tuberosity. Bautista Zavala Jr., MD Pelvis X-Ray 06/18/172328 Signed Impressions: Service Date/Time: Sunday, June 18, 2017 23:10 - CONCLUSION: Unremarkable examination of the pelvis. Bautista Zavala Jr., MD Head CT 06/18/172328 Signed Impressions: Service Date/Time: Sunday, June 18, 2017 23:40 - CONCLUSION: Normal examination. Bautista Zavala Jr., MD Chest X-Ray 06/18/172328 Signed Impressions: Service Date/Time: Sunday, June 18, 2017 23:10 - CONCLUSION: 1. Left proximal humeral fracture. 2. No acute intrathoracic abnormality. Bautista Zavala Jr., MD Chest CT 06/18/172328 Signed Impressions: Service Date/Time: Sunday, June 18, 2017 23:45 - CONCLUSION: 1. Acute fracture of the left proximal humerus partially seen. 2. No acute intrathoracic abnormality. Bautista Zavala Jr., MD Cervical Spine CT 06/18/172328 Signed Impressions: Service Date/Time: Sunday, June 18, 2017 23:40 - CONCLUSION: Normal examination. Bautista Zavala Jr., MD Abdomen/Pelvis CT 06/18/172328 Signed Impressions: Service Date/Time: Sunday, June 18, 2017 23:45 - CONCLUSION: 1. No acute outer mality. 2. Trace amount of free fluid within the cul-de-sac which is within the physiologic range. Bautista Zavala Jr., MD Objective Remarks LLE: +exfix. pin sites clean. NVI. Swelling +2 with compartment semi-soft .no pain with dorsiflexion. LUE: +sling/swathe. NVI. EPL/APB/EFREN intact. Moderate swelling to LUE Assessment & Plan Ortho Post Op Day #: 4 Problem List: Assessment and Plan 1) Left Proximal Tibial Shaft Fx with Tibial Plateau Fx s/p exfix - POD 3 -NWB -pin care BID -elevate -Toradol Lovenox -ice -Resume diet-will plan on surgery next week when swelling has continued to decrease, likely Sunday or Sunday. 2) Left Proximal Humerus Fx with dislocation s/p Reduction and greater tuberosity fx -Continue conservative measures and treatment -maintain sling/swathe -Cristi Lovelace Jun 23, 2017 08:05
[2017-06-23] MEDS: LACTULOSE SYRUP 20 GM/30 ML CUP PO SCH (09:00)
[2017-06-23] MEDS: DOCUSATE SODIUM 50 MG/SENNA 8.6 MG TAB PO SCH ×2 (09:00→19:46)
[2017-06-23] MEDS: SODIUM CHLORIDE 0.9% FLUSH 5 ML FLUSH IVF SCH ×2 (09:00→19:46)
[2017-06-23] MEDS: SODIUM CHLORIDE 0.9% FLUSH 10 ML FLUSH IV FLUSH SCH (09:00)
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
[2017-06-23] MEDS: FAMOTIDINE 20 MG TAB PO SCH ×2 (10:41→19:46)
[2017-06-23] MEDS ORDERED: HYDROmorphone HCL PF 1 MG/ML VIAL IV PUSH ONE (11:00)
[2017-06-23] MEDS ORDERED: SUMAtriptan SUCCINATE 25 MG TAB PO PRN (11:00)
[2017-06-23] MEDS: ACETAMINOPHEN 1000 MG/100 ML VIAL IV SCH ×2 (11:44→18:42)
[2017-06-23] MEDS ORDERED: MAGN400S PO (11:45)
[2017-06-23 12:00] VITALS: BP 106/54; PULSE 96; RESP 17; TEMP 100.5; O2SAT 100
[2017-06-23] MEDS: HYDROmorphone HCL 2 MG TAB PO PRN ×3 (15:00→22:46)
[2017-06-23] MEDS: ENOXAPARIN SODIUM 40 MG/0.4 ML SYRINGE SQ SCH (15:01)
[2017-06-23] MEDS: GABAPENTIN 300 MG CAP PO SCH ×2 (15:01→18:42)
[2017-06-23] MEDS: MAGNESIUM HYDROXIDE SUSP 30 ML CUP PO SCH (19:46)
[2017-06-23 21:25] VITALS: BP 98/55; PULSE 87; RESP 18; TEMP 99; O2SAT 99
[2017-06-24] VITALS (7 sets, daily range): BP systolic 92–104; BP diastolic 53–61; PULSE 88–110; RESP 16–18; TEMP 97.8–100.3; O2SAT 98–100
[2017-06-24] MEDS: ACETAMINOPHEN 1000 MG/100 ML VIAL IV SCH ×3 (02:45→18:07)
[2017-06-24] MEDS: HYDROmorphone HCL 4 MG TAB PO PRN ×2 (02:45→06:47)
[2017-06-24] MEDS: diphenhydrAMINE HCL 50 MG/ML VIAL IV PRN ×2 (04:36→10:32)
[2017-06-24 05:42] LABS: AUTOMATED NEUTROPHIL # 6.2 TH/MM3 (1.8-7.7); BASOPHIL % 0.1 % (0.0-2.0); EOSINOPHIL # 0.1 TH/MM3 (0-0.4); HEMATOCRIT 28.6 % (35.0-46.0); HEMO FLAGS DIFF FINAL; LYMPHOCYTE # 1.4 TH/MM3 (1.0-4.8); MEAN CELL VOLUME 86.7 FL (80.0-100.0); MEAN CORPUSCULAR HGB CONC 34.6 % (32.0-36.0); MONO % 10.4 % (0.0-8.0); NEUT % 72.5 % (16.0-70.0); PLATELET COUNT 192 TH/MM3 (150-450); RED BLOOD COUNT 3.29 MIL/MM3 (4.00-5.30); RED CELL DISTRIBUTION WIDTH 12.3 % (11.6-17.2); WHITE BLOOD COUNT 8.5 TH/MM3 (4.0-11.0)
[2017-06-24 05:56] LABS: ALT (GPT) 33 U/L (10-53); ANION GAP 6 MEQ/L (5-15); AST (GOT) 39 U/L (15-37); BLOOD UREA NITROGEN 10 MG/DL (7-18); CHLORIDE 104 MEQ/L (98-107); GLOMERULAR FILTRATION RATE 84 ML/MIN (>89); POTASSIUM 3.7 MEQ/L (3.5-5.1); SODIUM (NA) 138 MEQ/L (136-145)
[2017-06-24 05:58] LABS: ALKALINE PHOSPHATASE 51 U/L (45-117); TOTAL BILIRUBIN ADULT 0.8 MG/DL (0.2-1.0)
--- NOTE | 2017-06-24 08:24 | RADRPT ---
EXAM DATE/TIME: 06/24/2017 07:56 [place] COMPARISON: CHEST SINGLE AP, June 18, 2017, 23:10. INDICATIONS : Fever MEDICAL HISTORY : None. SURGICAL HISTORY : None. ENCOUNTER: Subsequent ACUITY: 4 - 6 days PAIN SCORE: 0/10 LOCATION: chest FINDINGS: Portable AP view of the chest demonstrates a normal-sized cardiac silhouette. No effusion, consolidat ion, or pneumothorax is visualized. The bones and soft tissues demonstrate no acute abnormality. CONCLUSION: No acute cardiopulmonary abnormality is identified. Joshua Reyes MD on June 24, 2017 at 8:22 Board Certified Radiologist. This report was verified electronically.
[2017-06-24] MEDS: LACTULOSE SYRUP 20 GM/30 ML CUP PO SCH (09:00)
[2017-06-24] MEDS: SODIUM CHLORIDE 0.9% FLUSH 5 ML FLUSH IVF SCH ×2 (09:00→21:20)
--- NOTE | 2017-06-24 10:04 | PD.ORT.PN ---
Subjective Post Op Day #: 4 Subjective Remarks Patient is resting in bed with moderate to severe pain to the LLE and mild pain to the LUE. Objective Vitals Vital Signs Date Time Temp Pulse Resp B/P (MAP) Pulse Ox O2 Delivery O2 Flow Rate FiO2 06/24/17 08:00 99.0 88 18 102/60 (74) 98 06/24/17 03:20 110 92/59 (70) 100 06/24/17 00:00 100.3 99 18 100/61 (74) 100 06/23/17 21:25 99.0 87 18 98/55 (69) 99 06/23/17 12:00 100.5 96 17 106/54 (71) 100 I/O 06/23/17 06/23/17 06/23/17 06/24/17 06/24/17 06/24/17 07:00 15:00 23:00 07:00 15:00 23:00 Intake Total 240 ml 819 ml 581 ml 642 ml 100 ml Balance 240 ml 819 ml 581 ml 642 ml 100 ml Intake Oral 240 ml 720 ml 480 ml 480 ml IV Total 99 ml 101 ml 162 ml 100 ml # Voids 1 5 3 3 # Bowel Movements 0 0 0 Result Diagram: 06/24/17 0438 06/24/17 043 Imaging Last 72 hours Impressions Shoulder X-Ray 06/19/171999 Signed Impressions: Service Date/Time: Monday, June 19, 2017 14:20 - CONCLUSION: 1. Minimally displaced fracture through the proximal left humerus. Cristi Rapp MD Upper Extremity CT 06/19/17443 Signed Impressions: Service Date/Time: Monday, June 19, 2017 03:42 - CONCLUSION: 1. Comminuted proximal humeral fracture without dislocation. 5 mm of separation of the fracture fragments. Bautista Zavala Jr., MD Lower Extremity CT 06/19/17443 Signed Impressions: Service Date/Time: Monday, June 19, 2017 03:47 - CONCLUSION: 1. Comminuted fractures involving the lateral tibial plateau as well as the proximal tibial metadiaphysis and fibular diaphysis. Details given above. 2. Hemarthrosis. Bautista Zavala Jr., MD Tibia/Fibula X-Ray 06/19/17 0000 Signed Impressions: Service Date/Time: Monday, June 19, 2017 13:36 - CONCLUSION: 1. Comminuted fracture involving the proximal tibia and fibula. Cristi Rapp MD Shoulder X-Ray 06/19/17 0000 Signed Impressions: Service Date/Time: Monday, June 19, 2017 00:00 - CONCLUSION: Successful reduction of the previously seen anterior dislocation. Acute fracture of the greater tuberosity. Bautista Zavala Jr., MD Pelvis X-Ray 06/18/172328 Signed Impressions: Service Date/Time: Sunday, June 18, 2017 23:10 - CONCLUSION: Unremarkable examination of the pelvis. Bautista Zavala Jr., MD Head CT 06/18/172328 Signed Impressions: Service Date/Time: Sunday, June 18, 2017 23:40 - CONCLUSION: Normal examination. Bautista Zavala Jr., MD Chest X-Ray 06/18/172328 Signed Impressions: Service Date/Time: Sunday, June 18, 2017 23:10 - CONCLUSION: 1. Left proximal humeral fracture. 2. No acute intrathoracic abnormality. Bautista Zavala Jr., MD Chest CT 06/18/172328 Signed Impressions: Service Date/Time: Sunday, June 18, 2017 23:45 - CONCLUSION: 1. Acute fracture of the left proximal humerus partially seen. 2. No acute intrathoracic abnormality. Bautista Zavala Jr., MD Cervical Spine CT 06/18/172328 Signed Impressions: Service Date/Time: Sunday, June 18, 2017 23:40 - CONCLUSION: Normal examination. Bautista Zavala Jr., MD Abdomen/Pelvis CT 06/18/172328 Signed Impressions: Service Date/Time: Sunday, June 18, 2017 23:45 - CONCLUSION: 1. No acute outer mality. 2. Trace amount of free fluid within the cul-de-sac which is within the physiologic range. Bautista Zavala Jr., MD Last 24 hours Impressions Shoulder X-Ray 06/19/17 0000 Signed Impressions: Service Date/Time: Monday, June 19, 2017 00:00 - CONCLUSION: Successful reduction of the previously seen anterior dislocation. Acute fracture of the greater tuberosity. Bautista Zavala Jr., MD Pelvis X-Ray 06/18/172328 Signed Impressions: Service Date/Time: Sunday, June 18, 2017 23:10 - CONCLUSION: Unremarkable examination of the pelvis. Bautista Zavala Jr., MD Head CT 06/18/172328 Signed Impressions: Service Date/Time: Sunday, June 18, 2017 23:40 - CONCLUSION: Normal examination. Bautista Zavala Jr., MD Chest X-Ray 06/18/172328 Signed Impressions: Service Date/Time: Sunday, June 18, 2017 23:10 - CONCLUSION: 1. Left proximal humeral fracture. 2. No acute intrathoracic abnormality. Bautista Zavala Jr., MD Chest CT 06/18/172328 Signed Impressions: Service Date/Time: Sunday, June 18, 2017 23:45 - CONCLUSION: 1. Acute fracture of the left proximal humerus partially seen. 2. No acute intrathoracic abnormality. Bautista Zavala Jr., MD Cervical Spine CT 06/18/172328 Signed Impressions: Service Date/Time: Sunday, June 18, 2017 23:40 - CONCLUSION: Normal examination. Bautista Zavala Jr., MD Abdomen/Pelvis CT 06/18/172328 Signed Impressions: Service Date/Time: Sunday, June 18, 2017 23:45 - CONCLUSION: 1. No acute outer mality. 2. Trace amount of free fluid within the cul-de-sac which is within the physiologic range. Bautista Zavala Jr., MD Objective Remarks LLE: +exfix. pin sites clean. NVI. Swelling +2 with compartment semi-soft .no pain with dorsiflexion. LUE: +sling/swathe. NVI. EPL/APB/EFREN intact. Moderate swelling to LUE Assessment & Plan Ortho Post Op Day #: 4 Problem List: Assessment and Plan 1) Left Proximal Tibial Shaft Fx with Tibial Plateau Fx s/p exfix - POD 4 -NWB -pin care BID -elevate -Toradol Lovenox -ice -Resume diet-will plan on surgery next week when swelling has continued to decrease, likely Sunday or Sunday. 2) Left Proximal Humerus Fx with dislocation s/p Reduction and greater tuberosity fx -Continue conservative measures and treatment -maintain sling/swathe -NWB Will add Morphine for breakthrough pain. Cristi Johnson Jun 24, 2017 10:04
[2017-06-24] MEDS: GABAPENTIN 300 MG CAP PO SCH ×3 (10:31→18:06)
[2017-06-24] MEDS: FAMOTIDINE 20 MG TAB PO SCH ×2 (10:31→21:18)
[2017-06-24] MEDS: DOCUSATE SODIUM 50 MG/SENNA 8.6 MG TAB PO SCH ×2 (10:32→21:20)
[2017-06-24] MEDS: HYDROmorphone HCL 2 MG TAB PO PRN ×3 (10:32→21:19)
[2017-06-24] MEDS ORDERED: HYDROmorphone HCL PF 1 MG/ML VIAL IV PUSH PRN (10:45)
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
[2017-06-24] MEDS: REMOVE OLD DURAGESIC (FENTANYL) PATCH T-DERMAL SCH (12:00)
[2017-06-24] MEDS: ENOXAPARIN SODIUM 40 MG/0.4 ML SYRINGE SQ SCH (12:49)
[2017-06-24] MEDS: ALPRAZolam 0.5 MG TAB PO SCH ×2 (12:49→18:06)
[2017-06-24] MEDS: fentaNYL 50 MCG/HR PATCH T-DERMAL SCH (12:49)
[2017-06-24] MEDS: MAGNESIUM HYDROXIDE SUSP 30 ML CUP PO SCH (21:19)
[2017-06-24] MEDS ORDERED: POVIDONE IODINE 5% (ANTISEPSIS KIT) 4 APPLICATIONS EACH NARE PRN (22:00)
[2017-06-24] MEDS ORDERED: INSULIN HUMAN REGULAR 1,000 UNITS/10 ML VIAL SQ PRN (22:00)
[2017-06-24] MEDS ORDERED: CHLORHEXIDINE GLUCONATE 2 % 1 PACK (2 CLOTHS) TOPICAL PRN (22:00)
[2017-06-24] MEDS ORDERED: SODIUM CHLORID 0.9% 500 ML IV PRN (22:00)
[2017-06-24] MEDS ORDERED: LACTATED RINGER'S 1000 ML IV PRN (22:00)
[2017-06-25] MEDS: ALPRAZolam 0.5 MG TAB PO SCH ×4 (00:17→16:58)
[2017-06-25 00:45] VITALS: BP 98/66; PULSE 103; RESP 16; TEMP 100; O2SAT 100
[2017-06-25] MEDS: HYDROmorphone HCL 2 MG TAB PO PRN ×5 (01:25→20:16)
[2017-06-25] MEDS: ACETAMINOPHEN 1000 MG/100 ML VIAL IV SCH (03:00)
[2017-06-25 03:40] VITALS: BP 98/53; PULSE 97; RESP 17; TEMP 99.1; O2SAT 97
--- NOTE | 2017-06-25 06:43 | PD.ORT.PN ---
Subjective Subjective Remarks POD 6 s/p exfix left tibial shaft and plateau fracture s/p left greater tuberosity fracture of humerus doing well. pain controlled. resting comfortably. Objective Vitals Vital Signs Date Time Temp Pulse Resp B/P (MAP) Pulse Ox O2 Delivery O2 Flow Rate FiO2 06/25/17 03:40 99.1 97 17 98/53 (68) 97 06/25/17 00:45 100.0 103 16 98/66 (77) 100 06/24/17 20:49 99 06/24/17 20:35 97.8 93 16 95/54 (68) 98 06/24/17 16:00 100.3 103 18 104/57 (73) 100 06/24/17 12:00 99.7 98 18 101/53 (69) 100 06/24/17 08:00 99.0 88 18 102/60 (74) 98 I/O 06/24/17 06/24/17 06/24/17 06/25/17 06/25/17 06/25/17 07:00 15:00 23:00 07:00 15:00 23:00 Intake Total 642 ml 820 ml 240 ml Output Total 750 ml Balance 642 ml 820 ml -510 ml Intake Oral 480 ml 720 ml 240 ml IV Total 162 ml 100 ml Output Urine Total 750 ml Bladder Scan Volume Amount 947 ml # Voids 3 5 # Bowel Movements 0 0 0 Result Diagram: 06/24/17 0438 06/24/17 043 Imaging Last 72 hours Impressions Shoulder X-Ray 06/19/171999 Signed Impressions: Service Date/Time: Monday, June 19, 2017 14:20 - CONCLUSION: 1. Minimally displaced fracture through the proximal left humerus. Cristi Rapp MD Upper Extremity CT 06/19/17443 Signed Impressions: Service Date/Time: Monday, June 19, 2017 03:42 - CONCLUSION: 1. Comminuted proximal humeral fracture without dislocation. 5 mm of separation of the fracture fragments. Bautista Zavala Jr., MD Lower Extremity CT 06/19/17443 Signed Impressions: Service Date/Time: Monday, June 19, 2017 03:47 - CONCLUSION: 1. Comminuted fractures involving the lateral tibial plateau as well as the proximal tibial metadiaphysis and fibular diaphysis. Details given above. 2. Hemarthrosis. Bautista Zavala Jr., MD Tibia/Fibula X-Ray 06/19/17 0000 Signed Impressions: Service Date/Time: Monday, June 19, 2017 13:36 - CONCLUSION: 1. Comminuted fracture involving the proximal tibia and fibula. Cristi Rapp MD Shoulder X-Ray 06/19/17 0000 Signed Impressions: Service Date/Time: Monday, June 19, 2017 00:00 - CONCLUSION: Successful reduction of the previously seen anterior dislocation. Acute fracture of the greater tuberosity. Bautista Zavala Jr., MD Pelvis X-Ray 06/18/172328 Signed Impressions: Service Date/Time: Sunday, June 18, 2017 23:10 - CONCLUSION: Unremarkable examination of the pelvis. Bautista Zavala Jr., MD Head CT 06/18/172328 Signed Impressions: Service Date/Time: Sunday, June 18, 2017 23:40 - CONCLUSION: Normal examination. Bautista Zavala Jr., MD Chest X-Ray 06/18/172328 Signed Impressions: Service Date/Time: Sunday, June 18, 2017 23:10 - CONCLUSION: 1. Left proximal humeral fracture. 2. No acute intrathoracic abnormality. Bautista Zavala Jr., MD Chest CT 06/18/172328 Signed Impressions: Service Date/Time: Sunday, June 18, 2017 23:45 - CONCLUSION: 1. Acute fracture of the left proximal humerus partially seen. 2. No acute intrathoracic abnormality. Bautista Zavala Jr., MD Cervical Spine CT 06/18/172328 Signed Impressions: Service Date/Time: Sunday, June 18, 2017 23:40 - CONCLUSION: Normal examination. Bautista Zavala Jr., MD Abdomen/Pelvis CT 06/18/172328 Signed Impressions: Service Date/Time: Sunday, June 18, 2017 23:45 - CONCLUSION: 1. No acute outer mality. 2. Trace amount of free fluid within the cul-de-sac which is within the physiologic range. Bautista Zavala Jr., MD Last 24 hours Impressions Shoulder X-Ray 06/19/17 0000 Signed Impressions: Service Date/Time: Monday, June 19, 2017 00:00 - CONCLUSION: Successful reduction of the previously seen anterior dislocation. Acute fracture of the greater tuberosity. Bautista Zavala Jr., MD Pelvis X-Ray 06/18/172328 Signed Impressions: Service Date/Time: Sunday, June 18, 2017 23:10 - CONCLUSION: Unremarkable examination of the pelvis. Bautista Zavala Jr., MD Head CT 06/18/172328 Signed Impressions: Service Date/Time: Sunday, June 18, 2017 23:40 - CONCLUSION: Normal examination. Bautista Zavala Jr., MD Chest X-Ray 06/18/172328 Signed Impressions: Service Date/Time: Sunday, June 18, 2017 23:10 - CONCLUSION: 1. Left proximal humeral fracture. 2. No acute intrathoracic abnormality. Bautista Zavala Jr., MD Chest CT 06/18/172328 Signed Impressions: Service Date/Time: Sunday, June 18, 2017 23:45 - CONCLUSION: 1. Acute fracture of the left proximal humerus partially seen. 2. No acute intrathoracic abnormality. Bautista Zavala Jr., MD Cervical Spine CT 06/18/172328 Signed Impressions: Service Date/Time: Sunday, June 18, 2017 23:40 - CONCLUSION: Normal examination. Bautista Zavala Jr., MD Abdomen/Pelvis CT 06/18/172328 Signed Impressions: Service Date/Time: Sunday, June 18, 2017 23:45 - CONCLUSION: 1. No acute outer mality. 2. Trace amount of free fluid within the cul-de-sac which is within the physiologic range. Bautista Zavala Jr., MD Objective Remarks LLE: +exfix. pin sites clean. NVI. Swelling +2 with compartment semi-soft .no pain with dorsiflexion. LUE: +sling/swathe. NVI. EPL/APB/EFREN intact. Moderate swelling to LUE Assessment & Plan Assessment and Plan 1) Left Proximal Tibial Shaft Fx with Tibial Plateau Fx s/p exfix - POD 6 -NWB -pin care BID -elevate -Toradol Lovenox -ice -Resume diet -npo after MN -planf or surgery tomorrow 2) Left Proximal Humerus Fx with dislocation s/p Reduction and greater tuberosity fx -Continue conservative measures and treatment -maintain sling/swathe -NWB Will add Morphine for breakthrough pain. Shreyas Gustafson Jun 25, 2017 06:43
[2017-06-25 08:00] VITALS: BP 84/49; PULSE 87; RESP 18; TEMP 98; O2SAT 100
[2017-06-25] MEDS ORDERED: LACTULOSE SYRUP 20 GM/30 ML CUP PO PRN (08:00)
[2017-06-25] MEDS: KETOROLAC TROMETHAMINE 30 MG/ML (IVP) VIAL IV PUSH SCH ×3 (08:02→16:58)
[2017-06-25] MEDS: FAMOTIDINE 20 MG TAB PO SCH ×2 (08:02→20:15)
[2017-06-25] MEDS: SODIUM CHLORIDE 0.9% FLUSH 5 ML FLUSH IVF SCH ×2 (08:02→20:26)
[2017-06-25] MEDS: GABAPENTIN 300 MG CAP PO SCH ×3 (08:02→15:11)
[2017-06-25] MEDS: DOCUSATE SODIUM 50 MG/SENNA 8.6 MG TAB PO SCH ×2 (08:55→20:19)
[2017-06-25] MEDS: POLYETHYLENE GLYCOL 17 GM PKG PO SCH ×2 (08:55→09:00)
--- NOTE | 2017-06-25 11:42 | HHI.PR ---
Subjective Subjective Notes Ortho planning surgery tomorrow No complaints Objective Vitals/I&O Vital Signs Date Time Temp Pulse Resp B/P (MAP) Pulse Ox O2 Delivery O2 Flow Rate FiO2 06/25/17 08:00 98.0 87 18 84/49 (61) 100 Labs Laboratory Tests Test 06/18/17 23:25 06/19/17 00:10 06/24/17 04:37 06/24/17 04:38 Bedside Hemoglobin 13.6 G/DL Bedside Hematocrit 40.0 % Prothrombin Time 10.4 SEC Prothromb Time International Ratio 0.9 RATIO Activated Partial Thromboplast Time 23.8 SEC Bedside Sodium 142 MMOL/L Bedside Potassium 3.1 MMOL/L Bedside Chloride 104 MMOL/L Bedside Blood Urea Nitrogen 13 MG/DL Bedside Creatinine 0.9 MG/DL Bedside Glucose 128 MG/DL Human Chorionic Gonadotropin, Quant LESS THAN 1 MIU/ML Ethyl Alcohol Level LESS THAN 3 MG/DL Urine Color LIGHT-YELLOW Urine Turbidity CLEAR Urine pH 7.0 Urine Specific [place] 1.031 Urine Protein NEG mg/dL Urine Glucose (UA) NEG mg/dL Urine Ketones NEG mg/dL Urine Occult Blood NEG Urine Nitrite NEG Urine Bilirubin NEG Urine Urobilinogen LESS THAN 2.0 MG/DL Urine Leukocyte Esterase NEG Urine RBC LESS THAN 1 /hpf Urine Squamous Epithelial Cells 1 /hpf Microscopic Urinalysis Comment CATH-CULT NOT IND Blood Urea Nitrogen 10 MG/DL Creatinine 0.78 MG/DL Random Glucose 141 MG/DL Total Protein 6.0 GM/DL Albumin 2.4 GM/DL Calcium Level 8.2 MG/DL Alkaline Phosphatase 51 U/L Aspartate Amino Transf (AST/SGOT) 39 U/L Alanine Aminotransferase (ALT/SGPT) 33 U/L Total Bilirubin 0.8 MG/DL Sodium Level 138 MEQ/L Potassium Level 3.7 MEQ/L Chloride Level 104 MEQ/L Carbon Dioxide Level 28.0 MEQ/L Anion Gap 6 MEQ/L Estimat Glomerular Filtration Rate 84 ML/MIN White Blood Count 8.5 TH/MM3 Red Blood Count 3.29 MIL/MM3 Hemoglobin 9.9 GM/DL Hematocrit 28.6 % Mean Corpuscular Volume 86.7 FL Mean Corpuscular Hemoglobin 30.0 PG Mean Corpuscular Hemoglobin Concent 34.6 % Red Cell Distribution Width 12.3 % Platelet Count 192 TH/MM3 Mean Platelet Volume 7.6 FL Neutrophils (%) (Auto) 72.5 % Lymphocytes (%) (Auto) 16.0 % Monocytes (%) (Auto) 10.4 % Eosinophils (%) (Auto) 1.0 % Basophils (%) (Auto) 0.1 % Neutrophils # (Auto) 6.2 TH/MM3 Lymphocytes # (Auto) 1.4 TH/MM3 Monocytes # (Auto) 0.9 TH/MM3 Eosinophils # (Auto) 0.1 TH/MM3 Basophils # (Auto) 0.0 TH/MM3 CBC Comment DIFF FINAL Differential Comment Radiology Last 24 hours Impressions Chest X-Ray 06/24/17 0000 Signed Impressions: Service Date/Time: Saturday, June 24, 2017 07:56 - CONCLUSION: No acute cardiopulmonary abnormality is identified. Joshua Reyes MD Narrative Exam GENERAL: 36 year old well-nourished, well developed female lying in bed. SKIN: Warm and dry. HEAD: Atraumatic. Normocephalic. ENT: No nasal bleeding or discharge. Mucous membranes pink and moist. NECK: Trachea midline. No JVD. CARDIOVASCULAR: Regular rate and rhythm. RESPIRATORY: No accessory muscle use. Lungs clear to auscultation. Breath sounds equal bilaterally. GASTROINTESTINAL: Abdomen soft, non-tender, nondistended. + BS. MUSCULOSKELETAL: Extremities without cyanosis, +1 LLE edema. LLE ex-fix in place , pin sites clean. MAEW. + peripheral pulses x4. NEUROLOGICAL: Awake and alert. Normal speech. A/P Problem List: (1) Tibia/fibula fracture ICD Codes: S82.209A - Unspecified fracture of shaft of unspecified tibia, initial encounter for closed fracture; S82.409A - Unspecified fracture of shaft of unspecified fibula, initial encounter for closed fracture Status: Acute (2) Anterior shoulder dislocation ICD Codes: S43.016A - Anterior dislocation of unspecified humerus, initial encounter Status: Acute (3) Proximal humerus fracture ICD Codes: S42.209A - Unspecified fracture of upper end of unspecified humerus , initial encounter for closed fracture Status: Acute Assessment and Plan INJURIES: LEFT tib/fib fx LEFT proximal humerus fx LEFT shoulder dislocation 9/19: Reduction of LEFT shoulder 06/19: Closed reduction of left tibia fractures with manipulation, ex-fix left leg, compartment pressure checks left leg PMHx: Chronic pain (on Suboxone), Asthma Diet: Regular Pulm: IS, Acapella, EZ-pap. PRN nebs Pain: Dilaudid PO. Morphine IV. Fentanyl patch. Neurontin. Toradol IV x3 doses. Activity: OOB. PT and OT ordered (NWB RAD, [facility]B CLAUDY) GI: Pepcid Bowel: Lexus-colace. Lactulose PRN. MiraLax. LBM: 06/22 DVT: SCDs, Lovenox 40 QD LEFT tib/fib fx Orthopedics consulted 06/19: Closed reduction of left tibia fractures with manipulation, ex-fix left leg, compartment pressure checks left leg Pain control Pin care BID Ice Elevation OOB- PT and OT ordered Lovenox Ortho planning surgery in AM LEFT proximal humerus fx, LEFT shoulder dislocation Orthopedics consulted Nonoperative management 06/19: Reduction of LEFT shoulder Pain control OOB- PT and OT ordered Maintain sling and swath Plan of care discussed with patient at bedside. Case management consulted to assist with discharge planning. Problem Qualifiers (1) Tibia/fibula fracture: Qualified Codes: S82.202A - Unspecified fracture of shaft of left tibia, initial encounter for closed fracture; S82.402A - Unspecified fracture of shaft of left fibula, initial encounter for closed fracture (2) Anterior shoulder dislocation: Qualified Codes: S43.016A - Anterior dislocation of unspecified humerus, initial encounter (3) Proximal humerus fracture: Caleb Maguire Jun 25, 2017 11:42 am
[2017-06-25 12:00] VITALS: BP 93/61; PULSE 106; RESP 18; TEMP 98; O2SAT 98
[2017-06-25] MEDS: ENOXAPARIN SODIUM 40 MG/0.4 ML SYRINGE SQ SCH (13:04)
[2017-06-25] MEDS: diphenhydrAMINE HCL 50 MG/ML VIAL IV PRN (15:14)
[2017-06-25 16:00] VITALS: BP 91/57; PULSE 84; RESP 18; TEMP 98.5; O2SAT 100
[2017-06-25 20:12] VITALS: BP 95/65; PULSE 99; RESP 17; TEMP 97.8; O2SAT 99
[2017-06-26] VITALS: BP 101/60; PULSE 117; RESP 16; TEMP 98; O2SAT 95
[2017-06-26] MEDS: ALPRAZolam 0.5 MG TAB PO SCH ×6 (00:31→16:19)
[2017-06-26] MEDS: HYDROmorphone HCL 2 MG TAB PO PRN ×5 (01:01→20:44)
[2017-06-26] MEDS: diphenhydrAMINE HCL 50 MG/ML VIAL IV PRN ×3 (03:00→14:48)
[2017-06-26 04:00] VITALS: BP 105/62; PULSE 96; RESP 17; TEMP 100.8; O2SAT 99
--- NOTE | 2017-06-26 06:43 | PD.ORT.PN ---
Subjective Subjective Remarks Pain controlled with no new complaints Objective Vitals Vital Signs Date Time Temp Pulse Resp B/P (MAP) Pulse Ox O2 Delivery O2 Flow Rate FiO2 06/26/17 04:00 100.8 96 17 105/62 (76) 99 06/26/17 00:00 98.0 117 16 101/60 (74) 95 06/25/17 20:12 97.8 99 17 95/65 (75) 99 06/25/17 16:00 98.5 84 18 91/57 (68) 100 06/25/17 12:00 98.0 106 18 93/61 (72) 98 06/25/17 08:00 98.0 87 18 84/49 (61) 100 I/O 06/25/17 06/25/17 06/25/17 06/26/17 06/26/17 06/26/17 07:00 15:00 23:00 07:00 15:00 23:00 Intake Total 240 ml 480 ml 480 ml 480 ml Output Total 750 ml 400 ml 300 ml 300 ml Balance -510 ml 80 ml 180 ml 180 ml Intake Oral 240 ml 480 ml 480 ml 480 ml Output Urine Total 750 ml 400 ml 300 ml 300 ml # Voids 0 # Bowel Movements 0 0 0 0 Result Diagram: 06/24/17 0438 06/24/17 043 Imaging Last 72 hours Impressions Shoulder X-Ray 06/19/171999 Signed Impressions: Service Date/Time: Monday, June 19, 2017 14:20 - CONCLUSION: 1. Minimally displaced fracture through the proximal left humerus. Cristi Rapp MD Upper Extremity CT 06/19/17443 Signed Impressions: Service Date/Time: Monday, June 19, 2017 03:42 - CONCLUSION: 1. Comminuted proximal humeral fracture without dislocation. 5 mm of separation of the fracture fragments. Bautista Zavala Jr., MD Lower Extremity CT 06/19/17443 Signed Impressions: Service Date/Time: Monday, June 19, 2017 03:47 - CONCLUSION: 1. Comminuted fractures involving the lateral tibial plateau as well as the proximal tibial metadiaphysis and fibular diaphysis. Details given above. 2. Hemarthrosis. Bautista Zavala Jr., MD Tibia/Fibula X-Ray 06/19/17 0000 Signed Impressions: Service Date/Time: Monday, June 19, 2017 13:36 - CONCLUSION: 1. Comminuted fracture involving the proximal tibia and fibula. Cristi Rapp MD Shoulder X-Ray 06/19/17 0000 Signed Impressions: Service Date/Time: Monday, June 19, 2017 00:00 - CONCLUSION: Successful reduction of the previously seen anterior dislocation. Acute fracture of the greater tuberosity. Bautista Zavala Jr., MD Pelvis X-Ray 06/18/172328 Signed Impressions: Service Date/Time: Sunday, June 18, 2017 23:10 - CONCLUSION: Unremarkable examination of the pelvis. Bautista Zavala Jr., MD Head CT 06/18/172328 Signed Impressions: Service Date/Time: Sunday, June 18, 2017 23:40 - CONCLUSION: Normal examination. Bautista Zavala Jr., MD Chest X-Ray 06/18/172328 Signed Impressions: Service Date/Time: Sunday, June 18, 2017 23:10 - CONCLUSION: 1. Left proximal humeral fracture. 2. No acute intrathoracic abnormality. Bautista Zavala Jr., MD Chest CT 06/18/172328 Signed Impressions: Service Date/Time: Sunday, June 18, 2017 23:45 - CONCLUSION: 1. Acute fracture of the left proximal humerus partially seen. 2. No acute intrathoracic abnormality. Bautista Zavala Jr., MD Cervical Spine CT 06/18/172328 Signed Impressions: Service Date/Time: Sunday, June 18, 2017 23:40 - CONCLUSION: Normal examination. Bautista Zavala Jr., MD Abdomen/Pelvis CT 06/18/172328 Signed Impressions: Service Date/Time: Sunday, June 18, 2017 23:45 - CONCLUSION: 1. No acute outer mality. 2. Trace amount of free fluid within the cul-de-sac which is within the physiologic range. Bautista Zavala Jr., MD Last 24 hours Impressions Shoulder X-Ray 06/19/17 0000 Signed Impressions: Service Date/Time: Monday, June 19, 2017 00:00 - CONCLUSION: Successful reduction of the previously seen anterior dislocation. Acute fracture of the greater tuberosity. Bautista Zavala Jr., MD Pelvis X-Ray 06/18/172328 Signed Impressions: Service Date/Time: Sunday, June 18, 2017 23:10 - CONCLUSION: Unremarkable examination of the pelvis. Bautista Zavala Jr., MD Head CT 06/18/172328 Signed Impressions: Service Date/Time: Sunday, June 18, 2017 23:40 - CONCLUSION: Normal examination. Bautista Zavala Jr., MD Chest X-Ray 06/18/172328 Signed Impressions: Service Date/Time: Sunday, June 18, 2017 23:10 - CONCLUSION: 1. Left proximal humeral fracture. 2. No acute intrathoracic abnormality. Bautista Zavala Jr., MD Chest CT 06/18/172328 Signed Impressions: Service Date/Time: Sunday, June 18, 2017 23:45 - CONCLUSION: 1. Acute fracture of the left proximal humerus partially seen. 2. No acute intrathoracic abnormality. Bautista Zavala Jr., MD Cervical Spine CT 06/18/172328 Signed Impressions: Service Date/Time: Sunday, June 18, 2017 23:40 - CONCLUSION: Normal examination. Bautista Zavala Jr., MD Abdomen/Pelvis CT 06/18/172328 Signed Impressions: Service Date/Time: Sunday, June 18, 2017 23:45 - CONCLUSION: 1. No acute outer mality. 2. Trace amount of free fluid within the cul-de-sac which is within the physiologic range. Bautista Zavala Jr., MD Objective Remarks LLE: +exfix. pin sites clean. NVI. Swelling +2 with compartment semi-soft mild improvement. .no pain with dorsiflexion, LUE: +sling/swathe. NVI. EPL/APB/EFREN intact. Moderate swelling to LUE Assessment & Plan Assessment and Plan 1) Left Proximal Tibial Shaft Fx with Tibial Plateau Fx s/p exfix - POD 6 -NWB -pin care BID -elevate -Toradol x 6 doses Lovenox -ice -Resume diet -plan for surgery later this week 2) Left Proximal Humerus Fx with dislocation s/p Reduction and greater tuberosity fx -Continue conservative measures and treatment -maintain sling/swathe -NWB bacitracin for all abrasions daily Melvin Mandel Jr. Jun 26, 2017 06:43
[2017-06-26 06:52] LABS: AUTOMATED NEUTROPHIL # 6.7 TH/MM3 (1.8-7.7); BASOPHIL % 0.2 % (0.0-2.0); EOSINOPHIL # 0.1 TH/MM3 (0-0.4); EOSINOPHIL % 1.1 % (0.0-4.0); HEMATOCRIT 27.7 % (35.0-46.0); HEMO FLAGS DIFF FINAL; LYMPH % 18.4 % (9.0-44.0); LYMPHOCYTE # 1.8 TH/MM3 (1.0-4.8); MEAN CELL VOLUME 87.2 FL (80.0-100.0); MEAN CORPUSCULAR HEMOGLOBIN 30.3 PG (27.0-34.0); MEAN CORPUSCULAR HGB CONC 34.8 % (32.0-36.0); MONO % 10.1 % (0.0-8.0); NEUT % 70.2 % (16.0-70.0); PLATELET COUNT 215 TH/MM3 (150-450); RED BLOOD COUNT 3.17 MIL/MM3 (4.00-5.30); RED CELL DISTRIBUTION WIDTH 12.6 % (11.6-17.2); WHITE BLOOD COUNT 9.6 TH/MM3 (4.0-11.0)
[2017-06-26] MEDS: POLYETHYLENE GLYCOL 17 GM PKG PO SCH (07:42)
[2017-06-26] MEDS: GABAPENTIN 300 MG CAP PO SCH ×3 (07:42→16:19)
[2017-06-26] MEDS: FAMOTIDINE 20 MG TAB PO SCH ×2 (07:42→20:44)
[2017-06-26] MEDS: DOCUSATE SODIUM 50 MG/SENNA 8.6 MG TAB PO SCH ×2 (07:42→20:45)
[2017-06-26] MEDS: KETOROLAC TROMETHAMINE 30 MG/ML (IVP) VIAL IV PUSH PRN ×2 (07:44→16:20)
[2017-06-26] MEDS: SODIUM CHLORIDE 0.9% FLUSH 5 ML FLUSH IVF SCH ×2 (07:53→20:46)
[2017-06-26] MEDS: BACITRACIN TOP OINT 15 GM TUBE TOPICAL SCH (07:53)
[2017-06-26 08:00] VITALS: BP 95/53; PULSE 90; RESP 18; TEMP 98.7; O2SAT 96
[2017-06-26] MEDS: ENOXAPARIN SODIUM 40 MG/0.4 ML SYRINGE SQ SCH (11:48)
[2017-06-26 12:00] VITALS: BP 94/51; PULSE 85; RESP 18; TEMP 97.3; O2SAT 100
--- NOTE | 2017-06-26 12:44 | HHI.PR ---
Subjective Subjective Notes Orthopedics postponed surgery d/t swelling Pain controlled Eating well Objective Vitals/I&O Vital Signs Date Time Temp Pulse Resp B/P (MAP) Pulse Ox O2 Delivery O2 Flow Rate FiO2 06/26/17 08:00 98.7 90 18 95/53 (67) 96 Labs Laboratory Tests Test 06/26/17 05:35 White Blood Count 9.6 Red Blood Count 3.17 Hemoglobin 9.6 Hematocrit 27.7 Mean Corpuscular Volume 87.2 Mean Corpuscular Hemoglobin 30.3 Mean Corpuscular Hemoglobin Concent 34.8 Red Cell Distribution Width 12.6 Platelet Count 215 Mean Platelet Volume 7.9 Neutrophils (%) (Auto) 70.2 Lymphocytes (%) (Auto) 18.4 Monocytes (%) (Auto) 10.1 Eosinophils (%) (Auto) 1.1 Basophils (%) (Auto) 0.2 Neutrophils # (Auto) 6.7 Lymphocytes # (Auto) 1.8 Monocytes # (Auto) 1.0 Eosinophils # (Auto) 0.1 Basophils # (Auto) 0.0 CBC Comment DIFF FINAL Differential Comment Radiology Last 24 hours Impressions Chest X-Ray 06/24/17 0000 Signed Impressions: Service Date/Time: Saturday, June 24, 2017 07:56 - CONCLUSION: No acute cardiopulmonary abnormality is identified. Joshua Reyes MD Narrative Exam GENERAL: 36 year old well-nourished, well developed female lying in bed. SKIN: Warm and dry. HEAD: Atraumatic. Normocephalic. ENT: No nasal bleeding or discharge. Mucous membranes pink and moist. NECK: Trachea midline. No JVD. CARDIOVASCULAR: Regular rate and rhythm. RESPIRATORY: No accessory muscle use. Lungs clear to auscultation. Breath sounds equal bilaterally. GASTROINTESTINAL: Abdomen soft, non-tender, nondistended. + BS. MUSCULOSKELETAL: Extremities without cyanosis, +1 LLE edema. LLE ex-fix in place , pin sites clean, leg elevated on pillow. MAEW. + peripheral pulses x4. NEUROLOGICAL: Awake and alert. Normal speech. A/P Problem List: (1) Tibia/fibula fracture ICD Codes: S82.209A - Unspecified fracture of shaft of unspecified tibia, initial encounter for closed fracture; S82.409A - Unspecified fracture of shaft of unspecified fibula, initial encounter for closed fracture Status: Acute (2) Anterior shoulder dislocation ICD Codes: S43.016A - Anterior dislocation of unspecified humerus, initial encounter Status: Acute (3) Proximal humerus fracture ICD Codes: S42.209A - Unspecified fracture of upper end of unspecified humerus , initial encounter for closed fracture Status: Acute Assessment and Plan INJURIES: LEFT tib/fib fx LEFT proximal humerus fx LEFT shoulder dislocation 06/19: Reduction of LEFT shoulder 06/19: Closed reduction of left tibia fractures with manipulation, ex-fix left leg, compartment pressure checks left leg PMHx: Chronic pain (on Suboxone), Asthma Diet: Regular Pulm: IS, Acapella, EZ-pap. PRN nebs Pain: Dilaudid PO. Morphine IV. Fentanyl patch. Neurontin. Toradol IV. Activity: OOB. PT and OT ordered (PIERRE LEROY, PIERRE LOCO) GI: Pepcid Bowel: Lexus-colace. Lactulose PRN. MiraLax. LBM: 06/22 - Refusing bowel regimen, explained importance of taking medication to avoid narcotic induced constipation DVT: SCDs, Lovenox 40 QD LEFT tib/fib fx Orthopedics consulted 06/19: Closed reduction of left tibia fractures with manipulation, ex-fix left leg, compartment pressure checks left leg Pain control Pin care BID Ice Elevation OOB- PT and OT ordered Lovenox Ortho planning surgery later this week when swelling down LEFT proximal humerus fx, LEFT shoulder dislocation Orthopedics consulted Nonoperative management 06/19: Reduction of LEFT shoulder Pain control OOB- PT and OT ordered Maintain sling and swath Plan of care discussed with patient at bedside. Case management consulted to assist with discharge planning. The exam, history, and the medical decision-making described in the above note were completed with the assistance of the mid-level provider. I reviewed and agree with the findings presented. I attest that I had a [id number] encounter with the patient on the same day, and personally performed and documented my assessment and findings in the medical record. Problem Qualifiers (1) Tibia/fibula fracture: Qualified Codes: S82.202A - Unspecified fracture of shaft of left tibia, initial encounter for closed fracture; S82.402A - Unspecified fracture of shaft of left fibula, initial encounter for closed fracture (2) Anterior shoulder dislocation: Qualified Codes: S43.016A - Anterior dislocation of unspecified humerus, initial encounter (3) Proximal humerus fracture: Caleb Maguire Jun 26, 2017 12:44 Chris Tidwell MD Jul 25, 2017 12:30
[2017-06-26 15:30] VITALS: BP 110/59; PULSE 96; RESP 16; TEMP 99.7; O2SAT 100
[2017-06-26 20:00] VITALS: BP_SYST 163; BP_SYST 93; BP_DIAS 55; BP_DIAS 90; PULSE 77; PULSE 90; RESP 16; RESP 18; TEMP 99.2; O2SAT 100; O2SAT 94
[2017-06-27] VITALS: BP 99/56; PULSE 107; RESP 20; TEMP 98.8; O2SAT 98
[2017-06-27] MEDS: ALPRAZolam 0.5 MG TAB PO SCH ×2 (00:39→06:14)
[2017-06-27] MEDS: KETOROLAC TROMETHAMINE 30 MG/ML (IVP) VIAL IV PUSH PRN ×3 (00:54→17:37)
[2017-06-27] MEDS: diphenhydrAMINE HCL 50 MG/ML VIAL IV PRN ×2 (00:54→09:38)
[2017-06-27] MEDS: HYDROmorphone HCL 2 MG TAB PO PRN ×4 (04:11→22:06)
[2017-06-27 08:00] VITALS: BP 82/52; PULSE 93; RESP 17; TEMP 98.2; O2SAT 98
--- NOTE | 2017-06-27 08:11 | PD.ORT.PN ---
Subjective Subjective Remarks Pain controlled with no new complaints Objective Vitals Vital Signs Date Time Temp Pulse Resp B/P (MAP) Pulse Ox O2 Delivery O2 Flow Rate FiO2 06/27/17 00:00 98.8 107 20 99/56 (70) 98 06/26/17 20:00 99.2 77 16 163/90 (114) 94 06/26/17 20:00 99.2 90 18 93/55 (68) 100 06/26/17 15:30 99.7 96 16 110/59 (76) 100 06/26/17 12:00 97.3 85 18 94/51 (65) 100 I/O 06/26/17 06/26/17 06/26/17 06/27/17 06/27/17 06/27/17 07:00 15:00 23:00 07:00 15:00 23:00 Intake Total 480 ml 480 ml 320 ml 120 ml Output Total 300 ml 450 ml 320 ml 300 ml Balance 180 ml 30 ml 0 ml -180 ml Intake Oral 480 ml 480 ml 320 ml 120 ml Output Urine Total 300 ml 450 ml 320 ml 300 ml # Voids 0 # Bowel Movements 0 0 0 Result Diagram: 06/26/17 0535 06/24/17 0437 Imaging Last 72 hours Impressions Shoulder X-Ray 06/19/171999 Signed Impressions: Service Date/Time: Monday, June 19, 2017 14:20 - CONCLUSION: 1. Minimally displaced fracture through the proximal left humerus. Cristi Rapp MD Upper Extremity CT 06/19/17443 Signed Impressions: Service Date/Time: Monday, June 19, 2017 03:42 - CONCLUSION: 1. Comminuted proximal humeral fracture without dislocation. 5 mm of separation of the fracture fragments. Bautista Zavala Jr., MD Lower Extremity CT 06/19/174 Signed Impressions: Service Date/Time: Monday, June 19, 2017 03:47 - CONCLUSION: 1. Comminuted fractures involving the lateral tibial plateau as well as the proximal tibial metadiaphysis and fibular diaphysis. Details given above. 2. Hemarthrosis. Bautista Zavala Jr., MD Tibia/Fibula X-Ray 06/19/17 0000 Signed Impressions: Service Date/Time: Monday, June 19, 2017 13:36 - CONCLUSION: 1. Comminuted fracture involving the proximal tibia and fibula. Cristi Rapp MD Shoulder X-Ray 06/19/17 0000 Signed Impressions: Service Date/Time: Monday, June 19, 2017 00:00 - CONCLUSION: Successful reduction of the previously seen anterior dislocation. Acute fracture of the greater tuberosity. Bautista Zavala Jr., MD Pelvis X-Ray 06/18/172328 Signed Impressions: Service Date/Time: Sunday, June 18, 2017 23:10 - CONCLUSION: Unremarkable examination of the pelvis. Bautista Zavala Jr., MD Head CT 06/18/172328 Signed Impressions: Service Date/Time: Sunday, June 18, 2017 23:40 - CONCLUSION: Normal examination. Bautista Zavala Jr., MD Chest X-Ray 06/18/172328 Signed Impressions: Service Date/Time: Sunday, June 18, 2017 23:10 - CONCLUSION: 1. Left proximal humeral fracture. 2. No acute intrathoracic abnormality. Bautista Zavala Jr., MD Chest CT 06/18/172328 Signed Impressions: Service Date/Time: Sunday, June 18, 2017 23:45 - CONCLUSION: 1. Acute fracture of the left proximal humerus partially seen. 2. No acute intrathoracic abnormality. Bautista Zavala Jr., MD Cervical Spine CT 06/18/172328 Signed Impressions: Service Date/Time: Sunday, June 18, 2017 23:40 - CONCLUSION: Normal examination. Bautista Zavala Jr., MD Abdomen/Pelvis CT 06/18/172328 Signed Impressions: Service Date/Time: Sunday, June 18, 2017 23:45 - CONCLUSION: 1. No acute outer mality. 2. Trace amount of free fluid within the cul-de-sac which is within the physiologic range. Bautista Zavala Jr., MD Last 24 hours Impressions Shoulder X-Ray 06/19/17 0000 Signed Impressions: Service Date/Time: Monday, June 19, 2017 00:00 - CONCLUSION: Successful reduction of the previously seen anterior dislocation. Acute fracture of the greater tuberosity. Bautista Zavala Jr., MD Pelvis X-Ray 06/18/172328 Signed Impressions: Service Date/Time: Sunday, June 18, 2017 23:10 - CONCLUSION: Unremarkable examination of the pelvis. Bautista Zavala Jr., MD Head CT 06/18/172328 Signed Impressions: Service Date/Time: Sunday, June 18, 2017 23:40 - CONCLUSION: Normal examination. Bautista Zavala Jr., MD Chest X-Ray 06/18/172328 Signed Impressions: Service Date/Time: Sunday, June 18, 2017 23:10 - CONCLUSION: 1. Left proximal humeral fracture. 2. No acute intrathoracic abnormality. Bautista Zavala Jr., MD Chest CT 06/18/172328 Signed Impressions: Service Date/Time: Sunday, June 18, 2017 23:45 - CONCLUSION: 1. Acute fracture of the left proximal humerus partially seen. 2. No acute intrathoracic abnormality. Bautista Zavala Jr., MD Cervical Spine CT 06/18/172328 Signed Impressions: Service Date/Time: Sunday, June 18, 2017 23:40 - CONCLUSION: Normal examination. Bautista Zavala Jr., MD Abdomen/Pelvis CT 06/18/172328 Signed Impressions: Service Date/Time: Sunday, June 18, 2017 23:45 - CONCLUSION: 1. No acute outer mality. 2. Trace amount of free fluid within the cul-de-sac which is within the physiologic range. Bautista Zavala Jr., MD Objective Remarks LLE: +exfix. pin sites clean. NVI. Swelling +2 with compartment semi-soft mild improvement. .no pain with dorsiflexion, LUE: +sling/swathe. NVI. EPL/APB/EFREN intact. Moderate swelling to LUE Assessment & Plan Assessment and Plan 1) Left Proximal Tibial Shaft Fx with Tibial Plateau Fx s/p exfix - POD 7 -NWB -pin care BID -elevate -Toradol x 6 doses Lovenox -ice -NPO after MN -plan for surgery possible surgery tomorrow. Due to swelling Sunday is more likely 2) Left Proximal Humerus Fx with dislocation s/p Reduction and greater tuberosity fx -Continue conservative measures and treatment -maintain sling/swathe -NWB bacitracin for all abrasions daily Melvin Mandel Jr. Jun 27, 2017 08:11
[2017-06-27] MEDS: FAMOTIDINE 20 MG TAB PO SCH ×2 (09:35→19:44)
[2017-06-27] MEDS: GABAPENTIN 300 MG CAP PO SCH ×3 (09:35→17:38)
[2017-06-27] MEDS: POLYETHYLENE GLYCOL 17 GM PKG PO SCH (09:36)
[2017-06-27] MEDS: DOCUSATE SODIUM 50 MG/SENNA 8.6 MG TAB PO SCH ×2 (09:40→19:44)
[2017-06-27] MEDS: BACITRACIN TOP OINT 15 GM TUBE TOPICAL SCH (09:50)
[2017-06-27] MEDS: SODIUM CHLORIDE 0.9% FLUSH 5 ML FLUSH IVF SCH ×2 (09:51→19:44)
--- NOTE | 2017-06-27 10:41 | HHI.PR ---
Subjective Subjective Notes Pain controlled No complaints Objective Vitals/I&O Vital Signs Date Time Temp Pulse Resp B/P (MAP) Pulse Ox O2 Delivery O2 Flow Rate FiO2 06/27/17 08:00 98.2 93 17 82/52 (62) 98 Labs Laboratory Tests Test 06/18/17 23:25 06/19/17 00:10 06/24/17 04:37 06/26/17 05:35 Bedside Hemoglobin 13.6 G/DL Bedside Hematocrit 40.0 % Prothrombin Time 10.4 SEC Prothromb Time International Ratio 0.9 RATIO Activated Partial Thromboplast Time 23.8 SEC Bedside Sodium 142 MMOL/L Bedside Potassium 3.1 MMOL/L Bedside Chloride 104 MMOL/L Bedside Blood Urea Nitrogen 13 MG/DL Bedside Creatinine 0.9 MG/DL Bedside Glucose 128 MG/DL Human Chorionic Gonadotropin, Quant LESS THAN 1 MIU/ML Ethyl Alcohol Level LESS THAN 3 MG/DL Urine Color LIGHT-YELLOW Urine Turbidity CLEAR Urine pH 7.0 Urine Specific [place] 1.031 Urine Protein NEG mg/dL Urine Glucose (UA) NEG mg/dL Urine Ketones NEG mg/dL Urine Occult Blood NEG Urine Nitrite NEG Urine Bilirubin NEG Urine Urobilinogen LESS THAN 2.0 MG/DL Urine Leukocyte Esterase NEG Urine RBC LESS THAN 1 /hpf Urine Squamous Epithelial Cells 1 /hpf Microscopic Urinalysis Comment CATH-CULT NOT IND Blood Urea Nitrogen 10 MG/DL Creatinine 0.78 MG/DL Random Glucose 141 MG/DL Total Protein 6.0 GM/DL Albumin 2.4 GM/DL Calcium Level 8.2 MG/DL Alkaline Phosphatase 51 U/L Aspartate Amino Transf (AST/SGOT) 39 U/L Alanine Aminotransferase (ALT/SGPT) 33 U/L Total Bilirubin 0.8 MG/DL Sodium Level 138 MEQ/L Potassium Level 3.7 MEQ/L Chloride Level 104 MEQ/L Carbon Dioxide Level 28.0 MEQ/L Anion Gap 6 MEQ/L Estimat Glomerular Filtration Rate 84 ML/MIN White Blood Count 9.6 TH/MM3 Red Blood Count 3.17 MIL/MM3 Hemoglobin 9.6 GM/DL Hematocrit 27.7 % Mean Corpuscular Volume 87.2 FL Mean Corpuscular Hemoglobin 30.3 PG Mean Corpuscular Hemoglobin Concent 34.8 % Red Cell Distribution Width 12.6 % Platelet Count 215 TH/MM3 Mean Platelet Volume 7.9 FL Neutrophils (%) (Auto) 70.2 % Lymphocytes (%) (Auto) 18.4 % Monocytes (%) (Auto) 10.1 % Eosinophils (%) (Auto) 1.1 % Basophils (%) (Auto) 0.2 % Neutrophils # (Auto) 6.7 TH/MM3 Lymphocytes # (Auto) 1.8 TH/MM3 Monocytes # (Auto) 1.0 TH/MM3 Eosinophils # (Auto) 0.1 TH/MM3 Basophils # (Auto) 0.0 TH/MM3 CBC Comment DIFF FINAL Differential Comment Radiology Last 24 hours Impressions Chest X-Ray 06/24/17 0000 Signed Impressions: Service Date/Time: Saturday, June 24, 2017 07:56 - CONCLUSION: No acute cardiopulmonary abnormality is identified. Joshua Reyes MD Narrative Exam GENERAL: 36 year old well-nourished, well developed female lying in bed. SKIN: Warm and dry. HEAD: Atraumatic. Normocephalic. ENT: No nasal bleeding or discharge. Mucous membranes pink and moist. NECK: Trachea midline. No JVD. CARDIOVASCULAR: Regular rate and rhythm. RESPIRATORY: No accessory muscle use. Lungs clear to auscultation. Breath sounds equal bilaterally. GASTROINTESTINAL: Abdomen soft, non-tender, nondistended. + BS. MUSCULOSKELETAL: Extremities without cyanosis, +1 LLE edema. LLE ex-fix in place , pin sites clean, leg elevated on pillow. MAEW. + peripheral pulses x4. NEUROLOGICAL: Awake and alert. Normal speech. A/P Problem List: (1) Tibia/fibula fracture ICD Codes: S82.209A - Unspecified fracture of shaft of unspecified tibia, initial encounter for closed fracture; S82.409A - Unspecified fracture of shaft of unspecified fibula, initial encounter for closed fracture Status: Acute (2) Anterior shoulder dislocation ICD Codes: S43.016A - Anterior dislocation of unspecified humerus, initial encounter Status: Acute (3) Proximal humerus fracture ICD Codes: S42.209A - Unspecified fracture of upper end of unspecified humerus , initial encounter for closed fracture Status: Acute Assessment and Plan INJURIES: LEFT tib/fib fx LEFT proximal humerus fx LEFT shoulder dislocation 06/19: Reduction of LEFT shoulder 06/19: Closed reduction of left tibia fractures with manipulation, ex-fix left leg, compartment pressure checks left leg PMHx: Chronic pain (on Suboxone), Asthma Diet: Regular Pulm: IS, Acapella, EZ-pap. PRN nebs Pain: Dilaudid PO. Morphine IV. Fentanyl patch. Neurontin. Toradol IV. Activity: OOB. PT and OT ordered (NWB SAPNAE, NWB KURTE) GI: Pepcid Bowel: Lexus-colace. Lactulose PRN. MiraLax. LBM: 06/22 - Lactulose x1 today DVT: SCDs, Lovenox 40 QD LEFT tib/fib fx Orthopedics consulted 06/19: Closed reduction of left tibia fractures with manipulation, ex-fix left leg, compartment pressure checks left leg Pain control Pin care BID Ice Elevation OOB- PT and OT ordered Lovenox Ortho planning surgery later this week when swelling down LEFT proximal humerus fx, LEFT shoulder dislocation Orthopedics consulted Nonoperative management 06/19: Reduction of LEFT shoulder Pain control OOB- PT and OT ordered Maintain sling and swath Plan of care discussed with patient at bedside. Case management consulted to assist with discharge planning. Remarks seen and examined with BEAD PICKER,agree with assessment and plan pain control DVT prophylaxis ortho plan Problem Qualifiers (1) Tibia/fibula fracture: Qualified Codes: S82.202A - Unspecified fracture of shaft of left tibia, initial encounter for closed fracture; S82.402A - Unspecified fracture of shaft of left fibula, initial encounter for closed fracture (2) Anterior shoulder dislocation: Qualified Codes: S43.016A - Anterior dislocation of unspecified humerus, initial encounter (3) Proximal humerus fracture: Caleb Maguire Jun 27, 2017 10:41 Inge Chamberlain MD Jun 27, 2017 14:38
[2017-06-27] MEDS ORDERED: LACTULOSE SYRUP 20 GM/30 ML CUP PO ONE (10:45)
[2017-06-27 12:00] VITALS: BP 85/53; PULSE 88; RESP 16; TEMP 97.8; O2SAT 95
[2017-06-27] MEDS: fentaNYL 50 MCG/HR PATCH T-DERMAL SCH (13:01)
[2017-06-27] MEDS: ENOXAPARIN SODIUM 40 MG/0.4 ML SYRINGE SQ SCH (13:02)
[2017-06-27] MEDS: ALPRAZolam 0.5 MG TAB PO PRN (13:02)
[2017-06-27] MEDS: REMOVE OLD DURAGESIC (FENTANYL) PATCH T-DERMAL SCH (13:03)
[2017-06-27 15:31] VITALS: BP 97/57; PULSE 94; RESP 18; TEMP 98.4; O2SAT 99
[2017-06-27] MEDS: diphenhydrAMINE HCL 50 MG CAP PO PRN (16:06)
[2017-06-27] MEDS: MORPHINE SULFATE 4 MG/ML INJ IV PRN (17:38)
[2017-06-27 19:14] VITALS: BP 94/57; PULSE 93; RESP 16; TEMP 96.7; O2SAT 97
[2017-06-28] VITALS: BP 96/52; PULSE 101; RESP 18; TEMP 99.5; O2SAT 98
[2017-06-28] MEDS: MORPHINE SULFATE 4 MG/ML INJ IV PRN ×2 (00:22→05:53)
[2017-06-28] MEDS: diphenhydrAMINE HCL 50 MG CAP PO PRN (00:23)
[2017-06-28] MEDS: KETOROLAC TROMETHAMINE 30 MG/ML (IVP) VIAL IV PUSH PRN (03:34)
[2017-06-28] MEDS: HYDROmorphone HCL 2 MG TAB PO PRN ×2 (03:34→12:37)
[2017-06-28 04:00] VITALS: BP 94/45; PULSE 100; RESP 16; TEMP 99.1; O2SAT 96
--- NOTE | 2017-06-28 06:47 | PD.ORT.PN ---
Subjective Subjective Remarks POD 9 s/p exfix left tibial shaft and plateau fracture s/p left greater tuberosity fracture of humerus doing well. pain controlled. resting comfortably. Objective Vitals Vital Signs Date Time Temp Pulse Resp B/P (MAP) Pulse Ox O2 Delivery O2 Flow Rate FiO2 06/28/17 04:00 99.1 100 16 94/45 (61) 96 06/28/17 00:00 99.5 101 18 96/52 (67) 98 06/27/17 19:14 96.7 93 16 94/57 (69) 97 06/27/17 15:31 98.4 94 18 97/57 (70) 99 06/27/17 12:00 97.8 88 16 85/53 (64) 95 06/27/17 08:00 98.2 93 17 82/52 (62) 98 I/O 06/27/17 06/27/17 06/27/17 06/28/17 06/28/17 06/28/17 07:00 15:00 23:00 07:00 15:00 23:00 Intake Total 120 ml 480 ml 480 ml Output Total 300 ml 750 ml 650 ml Balance -180 ml -270 ml -170 ml Intake Oral 120 ml 480 ml 480 ml Output Urine Total 300 ml 750 ml 650 ml # Bowel Movements 0 0 0 Result Diagram: 06/26/17 0535 06/24/17 0437 Imaging Last 72 hours Impressions Shoulder X-Ray 06/19/171999 Signed Impressions: Service Date/Time: Monday, June 19, 2017 14:20 - CONCLUSION: 1. Minimally displaced fracture through the proximal left humerus. Cristi Rapp MD Upper Extremity CT 06/19/17443 Signed Impressions: Service Date/Time: Monday, June 19, 2017 03:42 - CONCLUSION: 1. Comminuted proximal humeral fracture without dislocation. 5 mm of separation of the fracture fragments. Bautista Zavala Jr., MD Lower Extremity CT 06/19/174 Signed Impressions: Service Date/Time: Monday, June 19, 2017 03:47 - CONCLUSION: 1. Comminuted fractures involving the lateral tibial plateau as well as the proximal tibial metadiaphysis and fibular diaphysis. Details given above. 2. Hemarthrosis. Bautista Zavala Jr., MD Tibia/Fibula X-Ray 06/19/17 0000 Signed Impressions: Service Date/Time: Monday, June 19, 2017 13:36 - CONCLUSION: 1. Comminuted fracture involving the proximal tibia and fibula. Cristi Rapp MD Shoulder X-Ray 06/19/17 0000 Signed Impressions: Service Date/Time: Monday, June 19, 2017 00:00 - CONCLUSION: Successful reduction of the previously seen anterior dislocation. Acute fracture of the greater tuberosity. Bautista Zavala Jr., MD Pelvis X-Ray 06/18/172328 Signed Impressions: Service Date/Time: Sunday, June 18, 2017 23:10 - CONCLUSION: Unremarkable examination of the pelvis. Bautista Zavala Jr., MD Head CT 06/18/172328 Signed Impressions: Service Date/Time: Sunday, June 18, 2017 23:40 - CONCLUSION: Normal examination. Bautista Zavala Jr., MD Chest X-Ray 06/18/172328 Signed Impressions: Service Date/Time: Sunday, June 18, 2017 23:10 - CONCLUSION: 1. Left proximal humeral fracture. 2. No acute intrathoracic abnormality. Bautista Zavala Jr., MD Chest CT 06/18/172328 Signed Impressions: Service Date/Time: Sunday, June 18, 2017 23:45 - CONCLUSION: 1. Acute fracture of the left proximal humerus partially seen. 2. No acute intrathoracic abnormality. Bautista Zavala Jr., MD Cervical Spine CT 06/18/172328 Signed Impressions: Service Date/Time: Sunday, June 18, 2017 23:40 - CONCLUSION: Normal examination. Bautista Zavala Jr., MD Abdomen/Pelvis CT 06/18/172328 Signed Impressions: Service Date/Time: Sunday, June 18, 2017 23:45 - CONCLUSION: 1. No acute outer mality. 2. Trace amount of free fluid within the cul-de-sac which is within the physiologic range. Bautista Zavala Jr., MD Last 24 hours Impressions Shoulder X-Ray 06/19/17 0000 Signed Impressions: Service Date/Time: Monday, June 19, 2017 00:00 - CONCLUSION: Successful reduction of the previously seen anterior dislocation. Acute fracture of the greater tuberosity. Bautista Zavala Jr., MD Pelvis X-Ray 06/18/172328 Signed Impressions: Service Date/Time: Sunday, June 18, 2017 23:10 - CONCLUSION: Unremarkable examination of the pelvis. Bautista Zavala Jr., MD Head CT 06/18/172328 Signed Impressions: Service Date/Time: Sunday, June 18, 2017 23:40 - CONCLUSION: Normal examination. Bautista Zavala Jr., MD Chest X-Ray 06/18/172328 Signed Impressions: Service Date/Time: Sunday, June 18, 2017 23:10 - CONCLUSION: 1. Left proximal humeral fracture. 2. No acute intrathoracic abnormality. Bautista Zavala Jr., MD Chest CT 06/18/172328 Signed Impressions: Service Date/Time: Sunday, June 18, 2017 23:45 - CONCLUSION: 1. Acute fracture of the left proximal humerus partially seen. 2. No acute intrathoracic abnormality. Bautista Zavala Jr., MD Cervical Spine CT 06/18/172328 Signed Impressions: Service Date/Time: Sunday, June 18, 2017 23:40 - CONCLUSION: Normal examination. Bautista Zavala Jr., MD Abdomen/Pelvis CT 06/18/172328 Signed Impressions: Service Date/Time: Sunday, June 18, 2017 23:45 - CONCLUSION: 1. No acute outer mality. 2. Trace amount of free fluid within the cul-de-sac which is within the physiologic range. Bautista Zavala Jr., MD Objective Remarks LLE: +exfix. pin sites clean. NVI. Swelling +2 with compartment semi-soft mild improvement. .no pain with dorsiflexion, LUE: +sling/swathe. NVI. EPL/APB/EFREN intact. Moderate swelling to LUE Assessment & Plan Assessment and Plan 1) Left Proximal Tibial Shaft Fx with Tibial Plateau Fx s/p exfix - POD 9 -NWB -pin care BID -elevate -hold lovenox after AM dose -ice -NPO after MN -plan for surgery possible surgery Sunday 2) Left Proximal Humerus Fx with dislocation s/p Reduction and greater tuberosity fx -Continue conservative measures and treatment -maintain sling/swathe -NWB bacitracin for all abrasions daily Shreyas Gustafson Jun 28, 2017 06:47
[2017-06-28] MEDS ORDERED: MAGNESIUM CITRATE SOLN 300 ML BTL PO ONE (07:45)
[2017-06-28 08:00] VITALS: BP 101/53; PULSE 95; RESP 16; TEMP 99.8; O2SAT 100
[2017-06-28] MEDS: POLYETHYLENE GLYCOL 17 GM PKG PO SCH (09:11)
[2017-06-28] MEDS: DOCUSATE SODIUM 50 MG/SENNA 8.6 MG TAB PO SCH ×2 (09:12→20:42)
[2017-06-28] MEDS: HYDROmorphone HCL 4 MG TAB PO PRN ×3 (09:12→23:02)
[2017-06-28] MEDS: FAMOTIDINE 20 MG TAB PO SCH ×2 (09:12→20:41)
[2017-06-28] MEDS: GABAPENTIN 300 MG CAP PO SCH ×3 (09:12→17:24)
[2017-06-28] MEDS: SODIUM CHLORIDE 0.9% FLUSH 5 ML FLUSH IVF SCH ×2 (09:14→20:42)
[2017-06-28] MEDS: BACITRACIN TOP OINT 15 GM TUBE TOPICAL SCH (09:14)
[2017-06-28] MEDS: ALPRAZolam 0.5 MG TAB PO PRN (10:22)
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
[2017-06-28 12:00] VITALS: BP 128/66; PULSE 118; RESP 18; TEMP 101.7; O2SAT 99
[2017-06-28] MEDS ORDERED: PILL SPLITTER OTHER PRN (12:30)
[2017-06-28] MEDS: traZODone HCL 50 MG TAB PO SCH ×2 (12:44→20:41)
[2017-06-28] MEDS: LACTULOSE SYRUP 20 GM/30 ML CUP PO SCH (12:48)
[2017-06-28] MEDS ORDERED: ACETAMINOPHEN 325 MG TAB PO ONE (13:45)
[2017-06-28] MEDS: HYDROmorphone HCL PF 1 MG/ML VIAL IV PUSH PRN ×2 (15:35→20:37)
[2017-06-28 16:00] VITALS: BP 97/45; PULSE 106; RESP 16; TEMP 99.7; O2SAT 95
[2017-06-28 20:17] VITALS: BP 91/50; PULSE 99; RESP 18; TEMP 98.7; O2SAT 97
[2017-06-28] MEDS ORDERED: ACETAMINOPHEN 1000 MG/100 ML VIAL IV PRN (21:00)
[2017-06-29 00:36] VITALS: BP 90/50; PULSE 88; RESP 18; TEMP 98; O2SAT 96
[2017-06-29] MEDS: HYDROmorphone HCL PF 1 MG/ML VIAL IV PUSH PRN ×5 (01:40→23:07)
[2017-06-29 04:30] VITALS: BP 93/56; PULSE 94; RESP 18; TEMP 96.9; O2SAT 96
[2017-06-29] MEDS: HYDROmorphone HCL 4 MG TAB PO PRN ×3 (05:51→21:30)
[2017-06-29] MEDS: diphenhydrAMINE HCL 50 MG/ML VIAL IV PUSH PRN ×3 (06:05→23:07)
[2017-06-29] MEDS ORDERED: XARE10TA PO (06:17)
[2017-06-29] MEDS ORDERED: HYDR-3583 PO (06:17)
--- NOTE | 2017-06-29 07:13 | PD.ORT.PN ---
Subjective Subjective Remarks Pain controlled with no new complaints Objective Vitals Vital Signs Date Time Temp Pulse Resp B/P (MAP) Pulse Ox O2 Delivery O2 Flow Rate FiO2 06/29/17 04:30 96.9 94 18 93/56 (68) 96 06/29/17 00:36 98.0 88 18 90/50 (63) 96 06/28/17 20:17 98.7 99 18 91/50 (64) 97 06/28/17 16:00 99.7 106 16 97/45 (62) 95 06/28/17 12:00 101.7 118 18 128/66 (86) 99 06/28/17 08:00 99.8 95 16 101/53 (69) 100 I/O 06/28/17 06/28/17 06/28/17 06/29/17 06/29/17 06/29/17 07:00 15:00 23:00 07:00 15:00 23:00 Intake Total 480 ml 720 ml 0 ml Output Total 650 ml 900 ml 250 ml Balance -170 ml -180 ml -250 ml Intake Oral 480 ml 720 ml 0 ml Output Urine Total 650 ml 900 ml 250 ml # Bowel Movements 0 0 0 Result Diagram: 06/26/17 0535 Imaging Last 72 hours Impressions Shoulder X-Ray 06/19/171999 Signed Impressions: Service Date/Time: Monday, June 19, 2017 14:20 - CONCLUSION: 1. Minimally displaced fracture through the proximal left humerus. Cristi Rapp MD Upper Extremity CT 06/19/17443 Signed Impressions: Service Date/Time: Monday, June 19, 2017 03:42 - CONCLUSION: 1. Comminuted proximal humeral fracture without dislocation. 5 mm of separation of the fracture fragments. Bautista Zavala Jr., MD Lower Extremity CT 06/19/174 Signed Impressions: Service Date/Time: Monday, June 19, 2017 03:47 - CONCLUSION: 1. Comminuted fractures involving the lateral tibial plateau as well as the proximal tibial metadiaphysis and fibular diaphysis. Details given above. 2. Hemarthrosis. Bautista Zavala Jr., MD Tibia/Fibula X-Ray 06/19/17 0000 Signed Impressions: Service Date/Time: Monday, June 19, 2017 13:36 - CONCLUSION: 1. Comminuted fracture involving the proximal tibia and fibula. Cristi Rapp MD Shoulder X-Ray 06/19/17 0000 Signed Impressions: Service Date/Time: Monday, June 19, 2017 00:00 - CONCLUSION: Successful reduction of the previously seen anterior dislocation. Acute fracture of the greater tuberosity. Bautista Zavala Jr., MD Pelvis X-Ray 06/18/172328 Signed Impressions: Service Date/Time: Sunday, June 18, 2017 23:10 - CONCLUSION: Unremarkable examination of the pelvis. Bautista Zavala Jr., MD Head CT 06/18/172328 Signed Impressions: Service Date/Time: Sunday, June 18, 2017 23:40 - CONCLUSION: Normal examination. Bautista Zavala Jr., MD Chest X-Ray 06/18/172328 Signed Impressions: Service Date/Time: Sunday, June 18, 2017 23:10 - CONCLUSION: 1. Left proximal humeral fracture. 2. No acute intrathoracic abnormality. Bautista Zavala Jr., MD Chest CT 06/18/172328 Signed Impressions: Service Date/Time: Sunday, June 18, 2017 23:45 - CONCLUSION: 1. Acute fracture of the left proximal humerus partially seen. 2. No acute intrathoracic abnormality. Bautista Zavala Jr., MD Cervical Spine CT 06/18/172328 Signed Impressions: Service Date/Time: Sunday, June 18, 2017 23:40 - CONCLUSION: Normal examination. Bautista Zavala Jr., MD Abdomen/Pelvis CT 06/18/172328 Signed Impressions: Service Date/Time: Sunday, June 18, 2017 23:45 - CONCLUSION: 1. No acute outer mality. 2. Trace amount of free fluid within the cul-de-sac which is within the physiologic range. Bautista Zavala Jr., MD Last 24 hours Impressions Shoulder X-Ray 06/19/17 0000 Signed Impressions: Service Date/Time: Monday, June 19, 2017 00:00 - CONCLUSION: Successful reduction of the previously seen anterior dislocation. Acute fracture of the greater tuberosity. Bautista Zavala Jr., MD Pelvis X-Ray 06/18/172328 Signed Impressions: Service Date/Time: Sunday, June 18, 2017 23:10 - CONCLUSION: Unremarkable examination of the pelvis. Bautista Zavala Jr., MD Head CT 06/18/172328 Signed Impressions: Service Date/Time: Sunday, June 18, 2017 23:40 - CONCLUSION: Normal examination. Bautista Zavala Jr., MD Chest X-Ray 06/18/172328 Signed Impressions: Service Date/Time: Sunday, June 18, 2017 23:10 - CONCLUSION: 1. Left proximal humeral fracture. 2. No acute intrathoracic abnormality. Bautista Zavala Jr., MD Chest CT 06/18/172328 Signed Impressions: Service Date/Time: Sunday, June 18, 2017 23:45 - CONCLUSION: 1. Acute fracture of the left proximal humerus partially seen. 2. No acute intrathoracic abnormality. Bautista Zavala Jr., MD Cervical Spine CT 06/18/172328 Signed Impressions: Service Date/Time: Sunday, June 18, 2017 23:40 - CONCLUSION: Normal examination. Bautista Zavala Jr., MD Abdomen/Pelvis CT 06/18/172328 Signed Impressions: Service Date/Time: Sunday, June 18, 2017 23:45 - CONCLUSION: 1. No acute outer mality. 2. Trace amount of free fluid within the cul-de-sac which is within the physiologic range. Bautista Zavala Jr., MD Objective Remarks LLE: +exfix. pin sites clean. NVI. Swelling +2 with compartment semi-soft mild improvement. .no pain with dorsiflexion, LUE: +sling/swathe. NVI. EPL/APB/EFREN intact. Moderate swelling to LUE Assessment & Plan Assessment and Plan 1) Left Proximal Tibial Shaft Fx with Tibial Plateau Fx s/p exfix - POD 9 -NWB -pin care BID -elevate -hold lovenox -ice -NPO -plan for surgery today 2) Left Proximal Humerus Fx with dislocation s/p Reduction and greater tuberosity fx -Continue conservative measures and treatment -maintain sling/swathe -NWB bacitracin for all abrasions daily Melvin Mandel Jr. Jun 29, 2017 07:13
[2017-06-29] MEDS ORDERED: BISACODYL 10 MG SUPP RECTAL ONE (07:15)
[2017-06-29] MEDS ORDERED: BISACODYL EC 5 MG TABEC PO ONE (07:15)
[2017-06-29 08:00] VITALS: BP 92/57; PULSE 105; RESP 16; TEMP 99.8; O2SAT 100
[2017-06-29] MEDS: GABAPENTIN 300 MG CAP PO SCH ×3 (09:00→17:19)
[2017-06-29] MEDS: traZODone HCL 50 MG TAB PO SCH ×2 (09:00→20:06)
[2017-06-29] MEDS: BACITRACIN TOP OINT 15 GM TUBE TOPICAL SCH (09:00)
[2017-06-29] MEDS: FAMOTIDINE 20 MG TAB PO SCH ×2 (09:00→20:06)
[2017-06-29] MEDS: SODIUM CHLORIDE 0.9% FLUSH 5 ML FLUSH IVF SCH ×2 (09:00→20:07)
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
[2017-06-29] MEDS ORDERED: KETOROLAC TROMETHAMINE 60 MG/2 ML (IM) VIAL IM ONE (09:54)
[2017-06-29] MEDS ORDERED: SODIUM CHLORIDE 0.9% 20 ML VIAL IV ONE (09:54)
[2017-06-29] MEDS ORDERED: ROCURONIUM INJ 50 MG/5 ML SYRINGE IV PUSH ONE (09:54)
[2017-06-29] MEDS ORDERED: PROPOFOL 200 MG/20 ML AMP IV ONE (09:54)
[2017-06-29] MEDS ORDERED: ONDANSETRON HCL 4 MG/2 ML VIAL IV PUSH ONE (09:54)
[2017-06-29] MEDS ORDERED: PHENYLEPH/NS 1000 MCG/10 ML SYR IV ONE (09:54)
[2017-06-29] MEDS ORDERED: LIDOCAINE HCL 1% PF 5 ML AMPULE OTHER ONE (09:54)
[2017-06-29] MEDS ORDERED: MIDAZOLAM HCL 2 MG/2 ML VIAL IV ONE (09:54)
[2017-06-29] MEDS ORDERED: DEXAMETHASONE SOD PHOS 4 MG/ML VIAL IV ONE (09:54)
[2017-06-29] MEDS ORDERED: GENTAMICIN SULFATE 80 MG/2 ML VIAL ONE (10:52)
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
[2017-06-29 12:00] VITALS: BP 94/50; PULSE 98; RESP 16; TEMP 99.9; O2SAT 99
[2017-06-29] MEDS ORDERED: ceFAZolin INJ 1,000 MG VIAL ONE (12:17)
[2017-06-29] MEDS ORDERED: VANCOMYCIN HCL 1000 MG VIAL ONE (12:17)
--- NOTE | 2017-06-29 13:44 | PD.ORT.PN ---
Subjective Subjective Remarks POD 0 s/p ORIF with removal of exfix left tibial plateau s/p left proximal humerus fx stable post op in pacu Objective Vitals Vital Signs Date Time Temp Pulse Resp B/P (MAP) Pulse Ox O2 Delivery O2 Flow Rate FiO2 06/29/17 08:00 99.8 105 16 92/57 (69) 100 06/29/17 04:30 96.9 94 18 93/56 (68) 96 06/29/17 00:36 98.0 88 18 90/50 (63) 96 06/28/17 20:17 98.7 99 18 91/50 (64) 97 06/28/17 16:00 99.7 106 16 97/45 (62) 95 I/O 06/28/17 06/28/17 06/28/17 06/29/17 06/29/17 06/29/17 07:00 15:00 23:00 07:00 15:00 23:00 Intake Total 480 ml 720 ml 0 ml Output Total 650 ml 900 ml 250 ml Balance -170 ml -180 ml -250 ml Intake Oral 480 ml 720 ml 0 ml Output Urine Total 650 ml 900 ml 250 ml # Bowel Movements 0 0 0 Result Diagram: 06/26/17 0535 Imaging Last 72 hours Impressions Shoulder X-Ray 06/19/171999 Signed Impressions: Service Date/Time: Monday, June 19, 2017 14:20 - CONCLUSION: 1. Minimally displaced fracture through the proximal left humerus. Cristi Rapp MD Upper Extremity CT 06/19/17443 Signed Impressions: Service Date/Time: Monday, June 19, 2017 03:42 - CONCLUSION: 1. Comminuted proximal humeral fracture without dislocation. 5 mm of separation of the fracture fragments. Bautista Zavala Jr., MD Lower Extremity CT 06/19/174 Signed Impressions: Service Date/Time: Monday, June 19, 2017 03:47 - CONCLUSION: 1. Comminuted fractures involving the lateral tibial plateau as well as the proximal tibial metadiaphysis and fibular diaphysis. Details given above. 2. Hemarthrosis. Bautista Zavala Jr., MD Tibia/Fibula X-Ray 06/19/17 0000 Signed Impressions: Service Date/Time: Monday, June 19, 2017 13:36 - CONCLUSION: 1. Comminuted fracture involving the proximal tibia and fibula. Cristi Rapp MD Shoulder X-Ray 06/19/17 0000 Signed Impressions: Service Date/Time: Monday, June 19, 2017 00:00 - CONCLUSION: Successful reduction of the previously seen anterior dislocation. Acute fracture of the greater tuberosity. Bautista Zavala Jr., MD Pelvis X-Ray 06/18/172328 Signed Impressions: Service Date/Time: Sunday, June 18, 2017 23:10 - CONCLUSION: Unremarkable examination of the pelvis. Bautista Zavala Jr., MD Head CT 06/18/172328 Signed Impressions: Service Date/Time: Sunday, June 18, 2017 23:40 - CONCLUSION: Normal examination. Bautista Zavala Jr., MD Chest X-Ray 06/18/172328 Signed Impressions: Service Date/Time: Sunday, June 18, 2017 23:10 - CONCLUSION: 1. Left proximal humeral fracture. 2. No acute intrathoracic abnormality. Bautista Zavala Jr., MD Chest CT 06/18/172328 Signed Impressions: Service Date/Time: Sunday, June 18, 2017 23:45 - CONCLUSION: 1. Acute fracture of the left proximal humerus partially seen. 2. No acute intrathoracic abnormality. Bautista Zavala Jr., MD Cervical Spine CT 06/18/172328 Signed Impressions: Service Date/Time: Sunday, June 18, 2017 23:40 - CONCLUSION: Normal examination. Bautista Zavala Jr., MD Abdomen/Pelvis CT 06/18/172328 Signed Impressions: Service Date/Time: Sunday, June 18, 2017 23:45 - CONCLUSION: 1. No acute outer mality. 2. Trace amount of free fluid within the cul-de-sac which is within the physiologic range. Bautista Zavala Jr., MD Last 24 hours Impressions Shoulder X-Ray 06/19/17 0000 Signed Impressions: Service Date/Time: Monday, June 19, 2017 00:00 - CONCLUSION: Successful reduction of the previously seen anterior dislocation. Acute fracture of the greater tuberosity. Bautista Zavala Jr., MD Pelvis X-Ray 06/18/172328 Signed Impressions: Service Date/Time: Sunday, June 18, 2017 23:10 - CONCLUSION: Unremarkable examination of the pelvis. Bautista Zavala Jr., MD Head CT 06/18/172328 Signed Impressions: Service Date/Time: Sunday, June 18, 2017 23:40 - CONCLUSION: Normal examination. Bautista Zavala Jr., MD Chest X-Ray 06/18/172328 Signed Impressions: Service Date/Time: Sunday, June 18, 2017 23:10 - CONCLUSION: 1. Left proximal humeral fracture. 2. No acute intrathoracic abnormality. Bautista Zavala Jr., MD Chest CT 06/18/172328 Signed Impressions: Service Date/Time: Sunday, June 18, 2017 23:45 - CONCLUSION: 1. Acute fracture of the left proximal humerus partially seen. 2. No acute intrathoracic abnormality. Bautista Zavala Jr., MD Cervical Spine CT 06/18/172328 Signed Impressions: Service Date/Time: Sunday, June 18, 2017 23:40 - CONCLUSION: Normal examination. Bautista Zavala Jr., MD Abdomen/Pelvis CT 06/18/172328 Signed Impressions: Service Date/Time: Sunday, June 18, 2017 23:45 - CONCLUSION: 1. No acute outer mality. 2. Trace amount of free fluid within the cul-de-sac which is within the physiologic range. Bautista Zavala Jr., MD Objective Remarks LLE: dressings clean and dry. intact. +CKS. LUE: +sling/swathe. NVI. EPL/APB/EFREN intact. Moderate swelling to LUE Assessment & Plan Assessment and Plan 1) Left Proximal Tibial Shaft Fx with Tibial Plateau Fx s/p removal of exfix and ORIF - POD 0 -NWB -CKS at all times -no quad sets, leg lifts, quad sets, strengthening -PROM 0-90deg -plan for DC home with Home health sat/sun if doing well with therapy -f/u with Viviana or CAIT[facility] in 2 weeks 2) Left Proximal Humerus Fx with dislocation s/p Reduction and greater tuberosity fx -Continue conservative measures and treatment -maintain sling/swathe -NWB bacitracin for all abrasions daily Shreyas Gustafson Jun 29, 2017 13:44
--- NOTE | 2017-06-29 13:45 | HHI.FF ---
Face to Face Verification Diagnosis: (1) Tibia/fibula fracture (2) Proximal humerus fracture Physical Therapy Wheelchair training Knee: Knee fracture, Protocol: Left, Non weight bearing Canvas Knee Splint: Remove only with PT Left LE Weight Bearing: Non WB, No Strengthening, No Quad Sets Left LE Range of Motion: Passive ROM (0-90 deg) Occupational Therapy Left UE Weight Bearing: Non WB Left UE Range of Motion: Pendular Nursing Dressing Changes: Do not change dressing (left leg), Jamel wrap, 4x4s, Xeroform I have seen patient Iliana Duarte on 06/29/17. My clinical findings support the need for the requested home health care services because: Ltd mobility - disease progression I certify that my clinical findings support that this patient is homebound because: Post-op weakness Shreyas Gustafson Jun 29, 2017 13:45
[2017-06-29] MEDS: LACTATED RINGER'S 1000 ML INJ 1,000 ML IV SCH ×2 (14:08→15:10)
[2017-06-29] MEDS ORDERED: Post-op Orders (for Pharmacy) MISC XX ONE (14:15)
[2017-06-29] MEDS ORDERED: ACETAMINOPHEN/HYDROcodone 325 MG/10 MG TAB PO PRN ×5 (14:15→16:30)
[2017-06-29] MEDS ORDERED: SODIUM CHLORIDE 0.9% FLUSH 5 ML FLUSH IVF PRN (14:15)
--- NOTE | 2017-06-29 14:18 | PD.OP ---
cc: Giuseppe Israel MD Operative Report Date of Surgery: Jun 29, 2017 Preoperative Diagnosis: Left tibia bicondylar plateau fracture Postoperative Diagnosis: Procedure: Removal of external fixation, open reduction internal fixation left bicondylar tibial plateau fracture Anesthesia: Gen. Surgeon: Giuseppe Israel Inductor Tester(s): Hamlet Mandel PA-C The surgical procedure was assisted by my physician grooming assistant. My P.A. presence was necessary throughout this case for the manipulation and positioning of the surgical extremity. My P.A. was assisting me throughout the duration of this procedure. The skill set of a physician grooming assistant was medically necessary to complete this procedure. During the surgical case the surgical scheduler was working at the back table and the physician grooming assistant was directly assisting me. Operation and Findings: Plan of activity: Nonweightbearing This patient was seen and evaluated preoperatively. Patient sustained an injury resulting a displaced left bicondylar tibial plateau fracture. Informed consent was obtained preoperatively after detailed discussion of the risks and benefits of surgery. Risk of surgery including bleeding, infection, nonunion, painful hardware, stiffness, loss of motion, arthritis, need for knee replacement, as well as medical complications including blood clots, stroke, heart attack, and were discussed. I also discussed the possibility of using allograft bone graft . Preoperatively the operative site was marked. Patient was brought to the operating room and placed on the operating room table. Intravenous sedation and general endotracheal anesthesia were administered. IV antibiotics were given and a time out procedure was preformed. Procedure began with removal of the external fixator. Clamps were loosened. Bars and clamps were now removed. The pins were removed with the drill. Next, the operative leg was prepped with alcohol followed by Hibiclens and draped in the usual sterile fashion. Next a 4-inch curvilinear incision over the anterolateral knee. Subcutaneous tissue was treated with Bovie. Iliotibial band was split in line with fibers. A sub-meniscal arthrotomy was created and the lateral articular surface was visualized. There was significant comminution and depression of the articular surface. A window was made in the metaphyseal region and bone tamps used to elevate the articular surface. Articular surface reduced into excellent alignment. K-wires were used for provisional fixation. At this point cancellous bone graft was packed under the articular surface using a bone tamp. The cortical fragments were now reduced. Fluoroscopy revealed excellent alignment of articular surface fractures Next attention was turned to the metaphyseal and tibial shaft fractures. The incision was extended distally. A portion of the fracture was visualized. Fracture was manipulated. Fracture keyed in anatomic alignment. A small fracture tenaculum was used to hold provisional fixation. Next a long Synthes proximal tibial plate was selected. The plate was placed underneath the anterior tibialis muscle. The plate was provisionally held with K-wires. 3.5 cortical screws were used compress plate to bone distally, and a periarticular clamp was used to compress the medial and lateral tibial plateau fracture fragments together. Multiple locking screws were now placed proximally. Additional screws were placed in the shaft. Multiple screws were placed in each side of fracture. K-wires were removed. Final fluoroscopy showed excellent alignment of fracture with well-placed hardware. Incisions were thoroughly irrigated. Attention was now turned to closure. Fascia and iliotibial band were closed with #1 Vicryl,. Subcutaneous tissues closed with 3 -0 Vicryl and skin was closed with evelio. Sterile dressings were applied. The patient was transferred to recovery in stable condition. Giuseppe Israel MD Jun 29, 2017 14:17
[2017-06-29] MEDS ORDERED: DO NOT ADM ANY ANTICOAGULANT DRUGS PRN (14:35)
[2017-06-29] MEDS ORDERED: *morphine SULFATE 8 MG/ML PERIprocedure ONLY ONE ×2 (15:00→15:19)
--- NOTE | 2017-06-29 15:33 | RADRPT ---
EXAM DATE/TIME: 06/29/2017 13:53 [facility] COMPARISON: CHEST SINGLE AP, June 29, 2017, 8:39. INDICATIONS : Left tibia open reduction internal fixation. MEDICAL HISTORY : None. SURGICAL HISTORY : None. ENCOUNTER: Initial ACUITY: 1 day PAIN SCORE: Non-responsive. LOCATION: Left tibia FINDINGS: Intraoperative examination demonstrates ORIF of the patient's tibial fracture. There is excellent ali gnment post plating. There is a displaced fracture of the proximal fibula as well. CONCLUSION: 1. Excellent alignment of the tibial fracture post plating. Cristi Rapp MD on June 29, 2017 at 15:31 Board Certified Radiologist. This report was verified electronically.
[2017-06-29 16:00] VITALS: BP 117/74; PULSE 115; RESP 16; TEMP 98.9; O2SAT 95
[2017-06-29] MEDS: POLYETHYLENE GLYCOL 17 GM PKG PO SCH (16:02)
[2017-06-29] MEDS: LACTULOSE SYRUP 20 GM/30 ML CUP PO SCH (16:02)
[2017-06-29] MEDS ORDERED: ACETAMINOPHEN 1000 MG/100 ML VIAL IV PRN (16:30)
[2017-06-29] MEDS: KETOROLAC TROMETHAMINE 30 MG/ML (IVP) VIAL IV PUSH SCH ×2 (16:37→23:06)
[2017-06-29] MEDS ORDERED: ERGOCALCIFEROL (VIT D2) 50,000 UNIT CAP PO SCH (17:00)
[2017-06-29] MEDS ORDERED: MELATONIN 5 MG TAB PO PRN (17:15)
[2017-06-29] MEDS: CALCIUM/VITAMIN D 250 MG/125 U TAB PO SCH (17:18)
[2017-06-29] MEDS: ACETAMINOPHEN 1000 MG/100 ML VIAL IV SCH ×2 (18:00→23:06)
[2017-06-29] MEDS: fentaNYL 50 MCG/HR PATCH T-DERMAL SCH (18:51)
[2017-06-29] MEDS: REMOVE OLD DURAGESIC (FENTANYL) PATCH T-DERMAL SCH (18:52)
[2017-06-29] MEDS: MAGNESIUM HYDROXIDE SUSP 30 ML CUP PO SCH (20:05)
[2017-06-29] MEDS: DOCUSATE SODIUM 50 MG/SENNA 8.6 MG TAB PO SCH (20:06)
[2017-06-29] MEDS: METHOCARBAMOL 500 MG TAB PO SCH (20:07)
[2017-06-29] MEDS: ceFAZolin 2 GM PREMIX 50 ML IV SCH (20:08)
[2017-06-29 20:26] VITALS: BP 105/61; PULSE 99; RESP 18; TEMP 98; O2SAT 96
[2017-06-30 00:15] VITALS: BP 116/74; PULSE 107; RESP 18; TEMP 98; O2SAT 97
[2017-06-30] MEDS: VANCOMYCIN INJ 1,000 MG in SODIUM CHLOR 0.9% 250 ML INJ 250 ML IV SCH ×2 (00:33→13:16)
[2017-06-30] MEDS: HYDROmorphone HCL 4 MG TAB PO PRN ×3 (02:34→10:47)
[2017-06-30 04:26] VITALS: BP 94/51; PULSE 90; RESP 18; TEMP 98; O2SAT 96
[2017-06-30] MEDS: ceFAZolin 2 GM PREMIX 50 ML IV SCH ×3 (04:51→20:40)
[2017-06-30] MEDS: ACETAMINOPHEN 1000 MG/100 ML VIAL IV SCH ×2 (04:51→11:22)
[2017-06-30] MEDS: METHOCARBAMOL 500 MG TAB PO SCH ×3 (04:51→21:54)
[2017-06-30] MEDS: HYDROmorphone HCL PF 1 MG/ML VIAL IV PUSH PRN ×4 (04:53→20:44)
--- NOTE | 2017-06-30 05:51 | PD.ORT.PN ---
Subjective Subjective Remarks pt has complaints of post op soreness no SOB, no chest pain Objective Vitals Vital Signs Date Time Temp Pulse Resp B/P (MAP) Pulse Ox O2 Delivery O2 Flow Rate FiO2 06/30/17 04:26 98.0 90 18 94/51 (65) 96 06/30/17 00:15 98.0 107 18 116/74 (88) 97 06/29/17 20:26 98.0 99 18 105/61 (76) 96 06/29/17 16:00 98.9 115 16 117/74 (88) 95 06/29/17 15:25 98.8 108 14 120/68 (85) 97 Nasal Cannula 2 06/29/17 15:15 114 14 127/77 (94) 100 Nasal Cannula 2 06/29/17 15:00 115 22 135/85 (102) 97 Nasal Cannula 2 06/29/17 14:45 104 22 123/65 (84) 100 Nasal Cannula 2 06/29/17 14:39 98.5 103 22 133/74 (93) 100 Nasal Cannula 2 06/29/17 12:00 99.9 98 16 94/50 (65) 99 06/29/17 08:00 99.8 105 16 92/57 (69) 100 I/O 06/29/17 06/29/17 06/29/17 06/30/17 06/30/17 06/30/17 07:00 15:00 23:00 07:00 15:00 23:00 Intake Total 0 ml 1500 ml 762 ml Output Total 250 ml 1200 ml 1225 ml Balance -250 ml 300 ml -463 ml Intake Oral 0 ml 240 ml IV Total 522 ml Other 1500 ml Output Urine Total 250 ml 950 ml 1225 ml Estimated Blood Loss 250 ml # Bowel Movements 0 0 Result Diagram: 06/26/17 0535 Imaging Last 72 hours Impressions Shoulder X-Ray 06/19/171999 Signed Impressions: Service Date/Time: Monday, June 19, 2017 14:20 - CONCLUSION: 1. Minimally displaced fracture through the proximal left humerus. Cristi Rapp MD Upper Extremity CT 06/19/17 0444 Signed Impressions: Service Date/Time: Monday, June 19, 2017 03:42 - CONCLUSION: 1. Comminuted proximal humeral fracture without dislocation. 5 mm of separation of the fracture fragments. Bautista Zavala Jr., MD Lower Extremity CT 06/19/17 0444 Signed Impressions: Service Date/Time: Monday, June 19, 2017 03:47 - CONCLUSION: 1. Comminuted fractures involving the lateral tibial plateau as well as the proximal tibial metadiaphysis and fibular diaphysis. Details given above. 2. Hemarthrosis. Bautista Zavala Jr., MD Tibia/Fibula X-Ray 06/19/17 0000 Signed Impressions: Service Date/Time: Monday, June 19, 2017 13:36 - CONCLUSION: 1. Comminuted fracture involving the proximal tibia and fibula. Cristi Rapp MD Shoulder X-Ray 06/19/17 0000 Signed Impressions: Service Date/Time: Monday, June 19, 2017 00:00 - CONCLUSION: Successful reduction of the previously seen anterior dislocation. Acute fracture of the greater tuberosity. Bautista Zavala Jr., MD Pelvis X-Ray 06/18/172328 Signed Impressions: Service Date/Time: Sunday, June 18, 2017 23:10 - CONCLUSION: Unremarkable examination of the pelvis. Bautista Zavala Jr., MD Head CT 06/18/172328 Signed Impressions: Service Date/Time: Sunday, June 18, 2017 23:40 - CONCLUSION: Normal examination. Bautista Zavala Jr., MD Chest X-Ray 06/18/172328 Signed Impressions: Service Date/Time: Sunday, June 18, 2017 23:10 - CONCLUSION: 1. Left proximal humeral fracture. 2. No acute intrathoracic abnormality. Bautista Zavala Jr., MD Chest CT 06/18/172328 Signed Impressions: Service Date/Time: Sunday, June 18, 2017 23:45 - CONCLUSION: 1. Acute fracture of the left proximal humerus partially seen. 2. No acute intrathoracic abnormality. Bautista Zavala Jr., MD Cervical Spine CT 06/18/172328 Signed Impressions: Service Date/Time: Sunday, June 18, 2017 23:40 - CONCLUSION: Normal examination. Bautista Zavala Jr., MD Abdomen/Pelvis CT 06/18/172328 Signed Impressions: Service Date/Time: Sunday, June 18, 2017 23:45 - CONCLUSION: 1. No acute outer mality. 2. Trace amount of free fluid within the cul-de-sac which is within the physiologic range. Bautista Zavala Jr., MD Last 24 hours Impressions Shoulder X-Ray 06/19/17 0000 Signed Impressions: Service Date/Time: Monday, June 19, 2017 00:00 - CONCLUSION: Successful reduction of the previously seen anterior dislocation. Acute fracture of the greater tuberosity. Bautista Zavala Jr., MD Pelvis X-Ray 06/18/172328 Signed Impressions: Service Date/Time: Sunday, June 18, 2017 23:10 - CONCLUSION: Unremarkable examination of the pelvis. Bautista Zavala Jr., MD Head CT 06/18/172328 Signed Impressions: Service Date/Time: Sunday, June 18, 2017 23:40 - CONCLUSION: Normal examination. Bautista Zavala Jr., MD Chest X-Ray 06/18/172328 Signed Impressions: Service Date/Time: Sunday, June 18, 2017 23:10 - CONCLUSION: 1. Left proximal humeral fracture. 2. No acute intrathoracic abnormality. Bautista Zavala Jr., MD Chest CT 06/18/172328 Signed Impressions: Service Date/Time: Sunday, June 18, 2017 23:45 - CONCLUSION: 1. Acute fracture of the left proximal humerus partially seen. 2. No acute intrathoracic abnormality. Bautista Zavala Jr., MD Cervical Spine CT 06/18/172328 Signed Impressions: Service Date/Time: Sunday, June 18, 2017 23:40 - CONCLUSION: Normal examination. Bautista Zavala Jr., MD Abdomen/Pelvis CT 06/18/172328 Signed Impressions: Service Date/Time: Sunday, June 18, 2017 23:45 - CONCLUSION: 1. No acute outer mality. 2. Trace amount of free fluid within the cul-de-sac which is within the physiologic range. Bautista Zavala Jr., MD Objective Remarks seen by Dr. Yvan Waite LLE: dressings clean and dry. intact. +CKS. LUE: +sling/swathe. NVI. EPL/APB/EFREN intact. Moderate swelling to LUE Assessment & Plan Assessment and Plan 1) Left Proximal Tibial Shaft Fx with Tibial Plateau Fx s/p removal of exfix and ORIF - POD #1 -NWB -CKS at all times -no quad sets, leg lifts, quad sets, strengthening -PROM 0-90deg -plan for DC home with Home health when doing well with therapy, most likely Sunday or Sunday -f/u with Viviana or CAITLIN in 2 weeks 2) Left Proximal Humerus Fx with dislocation s/p Reduction and greater tuberosity fx -Continue conservative measures and treatment -maintain sling/swathe -NWB bacitracin for all abrasions daily Yessica Dueñas Jun 30, 2017 05:51
[2017-06-30] MEDS: diphenhydrAMINE HCL 50 MG/ML VIAL IV PUSH PRN ×2 (06:07→13:02)
[2017-06-30 06:25] LABS: AUTOMATED NEUTROPHIL # 9.3 TH/MM3 (1.8-7.7); BASOPHIL % 0.1 % (0.0-2.0); HEMATOCRIT 22.8 % (35.0-46.0); HEMO FLAGS DIFF FINAL; LYMPH % 8.7 % (9.0-44.0); MEAN CELL VOLUME 86.5 FL (80.0-100.0); MEAN CORPUSCULAR HEMOGLOBIN 29.9 PG (27.0-34.0); MEAN CORPUSCULAR HGB CONC 34.5 % (32.0-36.0); MONO % 10.5 % (0.0-8.0); NEUT % 80.7 % (16.0-70.0); PLATELET COUNT 289 TH/MM3 (150-450); RED BLOOD COUNT 2.63 MIL/MM3 (4.00-5.30); RED CELL DISTRIBUTION WIDTH 12.2 % (11.6-17.2); WHITE BLOOD COUNT 11.5 TH/MM3 (4.0-11.0)
[2017-06-30 06:52] LABS: ANION GAP 7 MEQ/L (5-15); AST (GOT) 43 U/L (15-37); BICARBONATE 29.8 MEQ/L (21.0-32.0); BLOOD UREA NITROGEN 10 MG/DL (7-18); CHLORIDE 103 MEQ/L (98-107); GLOMERULAR FILTRATION RATE 107 ML/MIN (>89); POTASSIUM 4.5 MEQ/L (3.5-5.1); SODIUM (NA) 140 MEQ/L (136-145)
[2017-06-30 06:53] LABS: ALT (GPT) 53 U/L (10-53)
[2017-06-30 06:56] LABS: ALKALINE PHOSPHATASE 84 U/L (45-117); TOTAL BILIRUBIN ADULT 0.4 MG/DL (0.2-1.0)
[2017-06-30] MEDS ORDERED: MAGNESIUM CITRATE SOLN 300 ML BTL PO ONE (07:45)
[2017-06-30] MEDS: CHOLECALCIFEROL (VIT D3) 1000 UNIT TAB PO SCH (07:46)
[2017-06-30] MEDS: traZODone HCL 50 MG TAB PO SCH ×2 (07:47→20:40)
[2017-06-30] MEDS: DOCUSATE SODIUM 50 MG/SENNA 8.6 MG TAB PO SCH ×2 (07:47→20:41)
[2017-06-30] MEDS: FAMOTIDINE 20 MG TAB PO SCH ×2 (07:47→20:41)
[2017-06-30] MEDS: GABAPENTIN 300 MG CAP PO SCH ×3 (07:48→18:07)
[2017-06-30] MEDS: KETOROLAC TROMETHAMINE 30 MG/ML (IVP) VIAL IV PUSH SCH ×3 (07:48→23:32)
[2017-06-30] MEDS: CALCIUM/VITAMIN D 250 MG/125 U TAB PO SCH ×3 (07:49→18:07)
[2017-06-30] MEDS: MAGNESIUM HYDROXIDE SUSP 30 ML CUP PO SCH ×2 (07:49→20:40)
[2017-06-30] MEDS: LACTULOSE SYRUP 20 GM/30 ML CUP PO SCH (07:49)
[2017-06-30] MEDS: SODIUM CHLORIDE 0.9% FLUSH 5 ML FLUSH IVF SCH ×2 (07:49→21:00)
[2017-06-30] MEDS: BACITRACIN TOP OINT 15 GM TUBE TOPICAL SCH (07:53)
[2017-06-30] MEDS: POLYETHYLENE GLYCOL 17 GM PKG PO SCH (07:54)
[2017-06-30 08:00] VITALS: BP 104/63; PULSE 69; RESP 18; TEMP 96.5; O2SAT 97
[2017-06-30 09:08] VITALS: O2SAT 98
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
[2017-06-30] MEDS ORDERED: COMMODE 3-IN-11 MIS (11:16)
[2017-06-30] MEDS ORDERED: WHEEMIS3 (11:16)
[2017-06-30] MEDS ORDERED: WALKER WHEELS/F1 MIS (11:16)
[2017-06-30] MEDS: ALPRAZolam 0.5 MG TAB PO PRN ×2 (11:21→23:32)
[2017-06-30] MEDS: ENOXAPARIN SODIUM 30 MG/0.3 ML SYRINGE SQ SCH (13:05)
[2017-06-30] MEDS ORDERED: SOD PHOSPHATE/SOD BIPHOSPHATE (ADULT) ENEMA 133ML PR ONE (14:00)
[2017-06-30 16:00] VITALS: BP 106/51; PULSE 100; RESP 18; TEMP 97; O2SAT 98
[2017-06-30] MEDS: HYDROmorphone HCL 2 MG TAB PO PRN ×2 (18:07→21:57)
[2017-06-30 20:30] VITALS: BP 112/62; PULSE 98; RESP 18; TEMP 96.4; O2SAT 97
[2017-06-30] MEDS ORDERED: ACETAMINOPHEN/HYDROcodone 325 MG/10 MG TAB PO PRN ×2 (22:45)
[2017-07-01 00:15] VITALS: BP 101/63; PULSE 99; RESP 18; TEMP 97.5; O2SAT 99
[2017-07-01] MEDS: ENOXAPARIN SODIUM 30 MG/0.3 ML SYRINGE SQ SCH ×2 (01:49→12:52)
[2017-07-01] MEDS: VANCOMYCIN INJ 1,000 MG in SODIUM CHLOR 0.9% 250 ML INJ 250 ML IV SCH (01:50)
[2017-07-01] MEDS: ceFAZolin 2 GM PREMIX 50 ML IV SCH ×2 (03:59→12:52)
[2017-07-01] MEDS: METHOCARBAMOL 500 MG TAB PO SCH ×3 (05:17→21:32)
[2017-07-01] MEDS: diphenhydrAMINE HCL 50 MG/ML VIAL IV PUSH PRN ×2 (05:18→21:32)
[2017-07-01 05:38] LABS: AUTOMATED NEUTROPHIL # 5.9 TH/MM3 (1.8-7.7); BASOPHIL % 0.4 % (0.0-2.0); EOSINOPHIL # 0.2 TH/MM3 (0-0.4); EOSINOPHIL % 1.8 % (0.0-4.0); HEMATOCRIT 22.5 % (35.0-46.0); HEMO FLAGS DIFF FINAL; LYMPH % 29.7 % (9.0-44.0); LYMPHOCYTE # 2.9 TH/MM3 (1.0-4.8); MEAN CELL VOLUME 86.8 FL (80.0-100.0); MEAN CORPUSCULAR HEMOGLOBIN 29.4 PG (27.0-34.0); MEAN CORPUSCULAR HGB CONC 33.9 % (32.0-36.0); MONO % 8.6 % (0.0-8.0); NEUT % 59.5 % (16.0-70.0); PLATELET COUNT 298 TH/MM3 (150-450); RED BLOOD COUNT 2.59 MIL/MM3 (4.00-5.30); RED CELL DISTRIBUTION WIDTH 12.7 % (11.6-17.2); WHITE BLOOD COUNT 9.9 TH/MM3 (4.0-11.0)
[2017-07-01 06:03] LABS: POTASSIUM 4.2 MEQ/L (3.5-5.1)
[2017-07-01] MEDS: DOCUSATE SODIUM 50 MG/SENNA 8.6 MG TAB PO SCH ×2 (07:21→19:48)
[2017-07-01] MEDS: traZODone HCL 50 MG TAB PO SCH ×2 (07:22→19:48)
[2017-07-01] MEDS: GABAPENTIN 300 MG CAP PO SCH ×3 (07:22→16:59)
[2017-07-01] MEDS: CALCIUM/VITAMIN D 250 MG/125 U TAB PO SCH ×3 (07:22→16:59)
[2017-07-01] MEDS: FAMOTIDINE 20 MG TAB PO SCH ×2 (07:22→19:48)
[2017-07-01] MEDS: CHOLECALCIFEROL (VIT D3) 1000 UNIT TAB PO SCH (07:22)
[2017-07-01] MEDS: LACTULOSE SYRUP 20 GM/30 ML CUP PO SCH (07:23)
[2017-07-01] MEDS: POLYETHYLENE GLYCOL 17 GM PKG PO SCH (07:23)
[2017-07-01] MEDS: KETOROLAC TROMETHAMINE 30 MG/ML (IVP) VIAL IV PUSH SCH (07:23)
[2017-07-01] MEDS: MAGNESIUM HYDROXIDE SUSP 30 ML CUP PO SCH ×2 (07:23→19:49)
[2017-07-01] MEDS: HYDROmorphone HCL PF 1 MG/ML VIAL IV PUSH PRN ×3 (07:24→19:49)
[2017-07-01] MEDS: SODIUM CHLORIDE 0.9% FLUSH 5 ML FLUSH IVF SCH ×2 (07:24→19:49)
[2017-07-01] MEDS: BACITRACIN TOP OINT 15 GM TUBE TOPICAL SCH (07:25)
--- NOTE | 2017-07-01 08:03 | PD.ORT.PN ---
Subjective Subjective Remarks pt has complaints of post op soreness states she did okay yesterday but increased pain during the night no SOB, no chest pain Objective Vitals Vital Signs Date Time Temp Pulse Resp B/P (MAP) Pulse Ox O2 Delivery O2 Flow Rate FiO2 07/01/17 08:00 16 07/01/17 08:00 16 07/01/17 00:15 97.5 99 18 101/63 (76) 99 06/30/17 20:30 96.4 98 18 112/62 (79) 97 06/30/17 16:00 97.0 100 18 106/51 (69) 98 06/30/17 11:59 16 06/30/17 11:59 16 06/30/17 09:08 98 21 I/O 06/30/17 06/30/17 06/30/17 07/01/17 07/01/17 07/01/17 07:00 15:00 23:00 07:00 15:00 23:00 Intake Total 880 ml 720 ml 410 ml 540 ml Output Total 800 ml 500 ml 250 ml 575 ml Balance 80 ml 220 ml 160 ml -35 ml Intake Oral 480 ml 720 ml 360 ml 240 ml IV Total 400 ml 50 ml 300 ml Output Urine Total 800 ml 500 ml 250 ml 575 ml # Bowel Movements 0 0 1 0 Result Diagram: 07/01/17 0500 07/01/17 0500 Imaging Last 72 hours Impressions Shoulder X-Ray 06/19/171999 Signed Impressions: Service Date/Time: Monday, June 19, 2017 14:20 - CONCLUSION: 1. Minimally displaced fracture through the proximal left humerus. Cristi Rapp MD Upper Extremity CT 06/19/17443 Signed Impressions: Service Date/Time: Monday, June 19, 2017 03:42 - CONCLUSION: 1. Comminuted proximal humeral fracture without dislocation. 5 mm of separation of the fracture fragments. Bautista Zavala Jr., MD Lower Extremity CT 06/19/174 Signed Impressions: Service Date/Time: Monday, June 19, 2017 03:47 - CONCLUSION: 1. Comminuted fractures involving the lateral tibial plateau as well as the proximal tibial metadiaphysis and fibular diaphysis. Details given above. 2. Hemarthrosis. Bautista Zavala Jr., MD Tibia/Fibula X-Ray 06/19/17 0000 Signed Impressions: Service Date/Time: Monday, June 19, 2017 13:36 - CONCLUSION: 1. Comminuted fracture involving the proximal tibia and fibula. Cristi Rapp MD Shoulder X-Ray 06/19/17 0000 Signed Impressions: Service Date/Time: Monday, June 19, 2017 00:00 - CONCLUSION: Successful reduction of the previously seen anterior dislocation. Acute fracture of the greater tuberosity. Bautista Zavala Jr., MD Pelvis X-Ray 06/18/172328 Signed Impressions: Service Date/Time: Sunday, June 18, 2017 23:10 - CONCLUSION: Unremarkable examination of the pelvis. Bautista Zavala Jr., MD Head CT 06/18/172328 Signed Impressions: Service Date/Time: Sunday, June 18, 2017 23:40 - CONCLUSION: Normal examination. Bautista Zavala Jr., MD Chest X-Ray 06/18/172328 Signed Impressions: Service Date/Time: Sunday, June 18, 2017 23:10 - CONCLUSION: 1. Left proximal humeral fracture. 2. No acute intrathoracic abnormality. Bautista Zavala Jr., MD Chest CT 06/18/172328 Signed Impressions: Service Date/Time: Sunday, June 18, 2017 23:45 - CONCLUSION: 1. Acute fracture of the left proximal humerus partially seen. 2. No acute intrathoracic abnormality. Bautista Zavala Jr., MD Cervical Spine CT 06/18/172328 Signed Impressions: Service Date/Time: Sunday, June 18, 2017 23:40 - CONCLUSION: Normal examination. Bautista Zavala Jr., MD Abdomen/Pelvis CT 06/18/172328 Signed Impressions: Service Date/Time: Sunday, June 18, 2017 23:45 - CONCLUSION: 1. No acute outer mality. 2. Trace amount of free fluid within the cul-de-sac which is within the physiologic range. Bautista Zavala Jr., MD Last 24 hours Impressions Shoulder X-Ray 06/19/17 0000 Signed Impressions: Service Date/Time: Monday, June 19, 2017 00:00 - CONCLUSION: Successful reduction of the previously seen anterior dislocation. Acute fracture of the greater tuberosity. Bautista Zavala Jr., MD Pelvis X-Ray 06/18/172328 Signed Impressions: Service Date/Time: Sunday, June 18, 2017 23:10 - CONCLUSION: Unremarkable examination of the pelvis. Bautista Zavala Jr., MD Head CT 06/18/172328 Signed Impressions: Service Date/Time: Sunday, June 18, 2017 23:40 - CONCLUSION: Normal examination. Bautista Zavala Jr., MD Chest X-Ray 06/18/172328 Signed Impressions: Service Date/Time: Sunday, June 18, 2017 23:10 - CONCLUSION: 1. Left proximal humeral fracture. 2. No acute intrathoracic abnormality. Bautista Zavala Jr., MD Chest CT 06/18/172328 Signed Impressions: Service Date/Time: Sunday, June 18, 2017 23:45 - CONCLUSION: 1. Acute fracture of the left proximal humerus partially seen. 2. No acute intrathoracic abnormality. Bautista Zavala Jr., MD Cervical Spine CT 06/18/172328 Signed Impressions: Service Date/Time: Sunday, June 18, 2017 23:40 - CONCLUSION: Normal examination. Bautista Zavala Jr., MD Abdomen/Pelvis CT 06/18/172328 Signed Impressions: Service Date/Time: Sunday, June 18, 2017 23:45 - CONCLUSION: 1. No acute outer mality. 2. Trace amount of free fluid within the cul-de-sac which is within the physiologic range. Bautista Zavala Jr., MD Objective Remarks seen by Dr. Yvan Waite LLE: dressings clean and dry. intact. +CKS. LUE: +sling/swathe. NVI. EPL/APB/EFREN intact. Moderate swelling to LUE Assessment & Plan Assessment and Plan 1) Left Proximal Tibial Shaft Fx with Tibial Plateau Fx s/p removal of exfix and ORIF - POD #2 -NWB -CKS at all times -no quad sets, leg lifts, quad sets, strengthening -PROM 0-90 deg -out of bed today more, anticipate discharge home with home health Sunday -f/u with Viviana or CAITLIN in 2 weeks 2) Left Proximal Humerus Fx with dislocation s/p Reduction and greater tuberosity fx -Continue conservative measures and treatment -maintain sling/swathe -NWB bacitracin for all abrasions daily Yessica Dueñas Jul 01, 2017 08:03
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
[2017-07-01] MEDS ORDERED: oxyCODONE/ACETAMINOPHEN 5 MG/325 MG TAB PO PRN (12:00)
[2017-07-01] MEDS: oxyCODONE/ACETAMINOPHEN 5 MG/325 MG TAB PO PRN ×3 (12:54→23:35)
[2017-07-01 16:00] VITALS: BP 99/57; PULSE 101; RESP 18; TEMP 98.1; O2SAT 100
[2017-07-01 20:29] VITALS: BP 98/56; PULSE 110; RESP 18; TEMP 98.7; O2SAT 96
[2017-07-01] MEDS: ALPRAZolam 0.5 MG TAB PO PRN (23:35)
[2017-07-02] MEDS: HYDROmorphone HCL PF 1 MG/ML VIAL IV PUSH PRN ×2 (00:03→05:49)
[2017-07-02 00:16] VITALS: BP 116/69; PULSE 107; RESP 19; TEMP 99.6; O2SAT 100
[2017-07-02] MEDS: ENOXAPARIN SODIUM 30 MG/0.3 ML SYRINGE SQ SCH ×2 (01:05→12:46)
[2017-07-02] MEDS: oxyCODONE/ACETAMINOPHEN 5 MG/325 MG TAB PO PRN ×5 (03:35→20:43)
[2017-07-02] MEDS: diphenhydrAMINE HCL 50 MG/ML VIAL IV PUSH PRN ×3 (03:36→23:20)
[2017-07-02] MEDS: METHOCARBAMOL 500 MG TAB PO SCH ×3 (05:44→20:42)
--- NOTE | 2017-07-02 06:51 | PD.ORT.PN ---
Subjective Subjective Remarks Pain controlled with no new complaints Objective Vitals Vital Signs Date Time Temp Pulse Resp B/P (MAP) Pulse Ox O2 Delivery O2 Flow Rate FiO2 07/02/17 00:16 99.6 107 19 116/69 (85) 100 07/01/17 20:29 98.7 110 18 98/56 (70) 96 07/01/17 18:06 16 07/01/17 16:00 98.1 101 18 99/57 (71) 100 07/01/17 11:44 16 07/01/17 08:00 16 I/O 07/01/17 07/01/17 07/01/17 07/02/17 07/02/17 07/02/17 07:00 15:00 23:00 07:00 15:00 23:00 Intake Total 540 ml 720 ml 240 ml 240 ml Output Total 575 ml 750 ml 800 ml Balance -35 ml -30 ml -560 ml 240 ml Intake Oral 240 ml 720 ml 240 ml 240 ml IV Total 300 ml Output Urine Total 575 ml 750 ml 800 ml # Voids 0 # Bowel Movements 0 0 0 0 Result Diagram: 07/01/17 0500 07/01/17 0500 Imaging Last 72 hours Impressions Shoulder X-Ray 06/19/171999 Signed Impressions: Service Date/Time: Monday, June 19, 2017 14:20 - CONCLUSION: 1. Minimally displaced fracture through the proximal left humerus. Cristi Rapp MD Upper Extremity CT 06/19/17443 Signed Impressions: Service Date/Time: Monday, June 19, 2017 03:42 - CONCLUSION: 1. Comminuted proximal humeral fracture without dislocation. 5 mm of separation of the fracture fragments. Bautista Zavala Jr., MD Lower Extremity CT 06/19/174 Signed Impressions: Service Date/Time: Monday, June 19, 2017 03:47 - CONCLUSION: 1. Comminuted fractures involving the lateral tibial plateau as well as the proximal tibial metadiaphysis and fibular diaphysis. Details given above. 2. Hemarthrosis. Bautista Zavala Jr., MD Tibia/Fibula X-Ray 06/19/17 0000 Signed Impressions: Service Date/Time: Monday, June 19, 2017 13:36 - CONCLUSION: 1. Comminuted fracture involving the proximal tibia and fibula. Cristi Rapp MD Shoulder X-Ray 06/19/17 0000 Signed Impressions: Service Date/Time: Monday, June 19, 2017 00:00 - CONCLUSION: Successful reduction of the previously seen anterior dislocation. Acute fracture of the greater tuberosity. Bautista Zavala Jr., MD Pelvis X-Ray 06/18/172328 Signed Impressions: Service Date/Time: Sunday, June 18, 2017 23:10 - CONCLUSION: Unremarkable examination of the pelvis. Bautista Zavala Jr., MD Head CT 06/18/172328 Signed Impressions: Service Date/Time: Sunday, June 18, 2017 23:40 - CONCLUSION: Normal examination. Bautista Zavala Jr., MD Chest X-Ray 06/18/172328 Signed Impressions: Service Date/Time: Sunday, June 18, 2017 23:10 - CONCLUSION: 1. Left proximal humeral fracture. 2. No acute intrathoracic abnormality. Bautisat Zavala Jr., MD Chest CT 06/18/172328 Signed Impressions: Service Date/Time: Sunday, June 18, 2017 23:45 - CONCLUSION: 1. Acute fracture of the left proximal humerus partially seen. 2. No acute intrathoracic abnormality. Bautista Zavala Jr., MD Cervical Spine CT 06/18/172328 Signed Impressions: Service Date/Time: Sunday, June 18, 2017 23:40 - CONCLUSION: Normal examination. Bautista Zavala Jr., MD Abdomen/Pelvis CT 06/18/172328 Signed Impressions: Service Date/Time: Sunday, June 18, 2017 23:45 - CONCLUSION: 1. No acute outer mality. 2. Trace amount of free fluid within the cul-de-sac which is within the physiologic range. Bautista Zavala Jr., MD Last 24 hours Impressions Shoulder X-Ray 06/19/17 0000 Signed Impressions: Service Date/Time: Monday, June 19, 2017 00:00 - CONCLUSION: Successful reduction of the previously seen anterior dislocation. Acute fracture of the greater tuberosity. Bautista Zavala Jr., MD Pelvis X-Ray 06/18/172328 Signed Impressions: Service Date/Time: Sunday, June 18, 2017 23:10 - CONCLUSION: Unremarkable examination of the pelvis. Bautista Zavala Jr., MD Head CT 06/18/172328 Signed Impressions: Service Date/Time: Sunday, June 18, 2017 23:40 - CONCLUSION: Normal examination. Bautista Zavala Jr., MD Chest X-Ray 06/18/172328 Signed Impressions: Service Date/Time: Sunday, June 18, 2017 23:10 - CONCLUSION: 1. Left proximal humeral fracture. 2. No acute intrathoracic abnormality. Bautista Zavala Jr., MD Chest CT 06/18/172328 Signed Impressions: Service Date/Time: Sunday, June 18, 2017 23:45 - CONCLUSION: 1. Acute fracture of the left proximal humerus partially seen. 2. No acute intrathoracic abnormality. Bautista Zavala Jr., MD Cervical Spine CT 06/18/172328 Signed Impressions: Service Date/Time: Sunday, June 18, 2017 23:40 - CONCLUSION: Normal examination. Bautista Zavala Jr., MD Abdomen/Pelvis CT 06/18/172328 Signed Impressions: Service Date/Time: Sunday, June 18, 2017 23:45 - CONCLUSION: 1. No acute outer mality. 2. Trace amount of free fluid within the cul-de-sac which is within the physiologic range. Bautista Zavala Jr., MD Objective Remarks LLE: dressings clean and dry. intact. +CKS. Distally intact sensation good capillary refills. Active dorsiflexion plantar flexion foot LUE: +sling/swathe. NVI. Full extension and flexion of all fingers Assessment & Plan Assessment and Plan 1) Left Proximal Tibial Shaft Fx with Tibial Plateau Fx s/p removal of exfix and ORIF - POD #3 -NWB -CKS at all times -no quad sets, leg lifts, quad sets, strengthening -PROM 0-90 deg -out of bed today more, anticipate discharge home with home health Sunday -f/u with Viviana or CAITLIN in 2 weeks 2) Left Proximal Humerus Fx with dislocation s/p Reduction and greater tuberosity fx -Continue conservative measures and treatment -maintain sling/swathe -NWB X-rays today to evaluate fracture Case management for discharge planning bacitracin for all abrasions daily Melvin Mandel Jr. Jul 02, 2017 06:51
[2017-07-02 08:00] VITALS: BP 85/49; PULSE 79; RESP 16; TEMP 97.7; O2SAT 96
[2017-07-02] MEDS: POLYETHYLENE GLYCOL 17 GM PKG PO SCH (08:56)
[2017-07-02] MEDS: GABAPENTIN 300 MG CAP PO SCH ×3 (08:57→17:01)
[2017-07-02] MEDS: FAMOTIDINE 20 MG TAB PO SCH ×2 (08:57→20:42)
[2017-07-02] MEDS: traZODone HCL 50 MG TAB PO SCH ×2 (08:57→20:42)
[2017-07-02] MEDS: DOCUSATE SODIUM 50 MG/SENNA 8.6 MG TAB PO SCH ×2 (08:57→20:43)
[2017-07-02] MEDS: CALCIUM/VITAMIN D 250 MG/125 U TAB PO SCH ×3 (08:57→17:00)
[2017-07-02] MEDS: CHOLECALCIFEROL (VIT D3) 1000 UNIT TAB PO SCH (08:58)
[2017-07-02] MEDS: BACITRACIN TOP OINT 15 GM TUBE TOPICAL SCH (09:00)
[2017-07-02] MEDS: MAGNESIUM HYDROXIDE SUSP 30 ML CUP PO SCH ×2 (09:00→20:42)
[2017-07-02] MEDS: SODIUM CHLORIDE 0.9% FLUSH 5 ML FLUSH IVF SCH ×2 (09:00→20:43)
[2017-07-02] MEDS: LACTULOSE SYRUP 20 GM/30 ML CUP PO SCH (09:00)
[2017-07-02] MEDS: ALPRAZolam 0.5 MG TAB PO PRN (10:56)
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
[2017-07-02 12:00] VITALS: BP 92/51; PULSE 88; RESP 16; TEMP 97.8; O2SAT 95
--- NOTE | 2017-07-02 13:43 | RADRPT ---
EXAM DATE/TIME: 07/02/2017 13:20 [place] COMPARISON: CT SHOULDER LEFT W/O CONTRAST, June 19, 2017, 3:42. SHOULDER LEFT LTD (2VWS), June 19 7, 14:20. INDICATIONS : Follow up left shoulder fracture. MEDICAL HISTORY : None. SURGICAL HISTORY : None. ENCOUNTER: Subsequent ACUITY: 2 weeks PAIN SCORE: 1/10 LOCATION: Left shoulder FINDINGS: Stable comminuted humeral head fracture involving the greater tuberosity and bicipital groove. There is slight stable displacement of the fracture fragments. No significant periosteal reaction or bony r emodeling. Glenohumeral joint appears anatomic. Remaining osseous structures are intact. A.c. joint i s maintained. Visualized left lung is clear. CONCLUSION: 1. Stable comminuted left humeral head fracture without significant bony remodeling or periosteal bret ction. Manuel Cole MD on July 02, 2017 at 13:36 Board Certified Radiologist. This report was verified electronically.
[2017-07-02 16:00] VITALS: BP 92/50; PULSE 73; RESP 16; TEMP 97.7; O2SAT 95
[2017-07-02] MEDS: fentaNYL 50 MCG/HR PATCH T-DERMAL SCH (17:00)
[2017-07-02] MEDS: REMOVE OLD DURAGESIC (FENTANYL) PATCH T-DERMAL SCH (17:00)
[2017-07-02 20:00] VITALS: BP 105/66; PULSE 110; RESP 20; TEMP 98.9; O2SAT 95
[2017-07-03] VITALS (7 sets, daily range): BP systolic 89–129; BP diastolic 55–75; PULSE 87–116; RESP 16–22; TEMP 97.8–98.8; O2SAT 95–97
[2017-07-03] MEDS: oxyCODONE/ACETAMINOPHEN 5 MG/325 MG TAB PO PRN ×5 (02:36→19:46)
[2017-07-03] MEDS: ENOXAPARIN SODIUM 30 MG/0.3 ML SYRINGE SQ SCH ×2 (02:36→13:16)
[2017-07-03] MEDS: METHOCARBAMOL 500 MG TAB PO SCH ×3 (05:37→19:49)
[2017-07-03] MEDS: diphenhydrAMINE HCL 50 MG/ML VIAL IV PUSH PRN (05:37)
--- NOTE | 2017-07-03 06:42 | PD.ORT.PN ---
Subjective Subjective Remarks POD 4 s/p ORIF with removal of exfix left tibial plateau s/p left proximal humerus fx pain control better yesterday. still having pain. Objective Vitals Vital Signs Date Time Temp Pulse Resp B/P (MAP) Pulse Ox O2 Delivery O2 Flow Rate FiO2 07/03/17 04:05 Room Air 07/03/17 03:49 17 07/03/17 00:00 98.1 116 20 129/75 (93) 97 07/02/17 20:00 98.9 110 20 105/66 (79) 95 07/02/17 16:00 97.7 73 16 92/50 (64) 95 07/02/17 12:00 97.8 88 16 92/51 (65) 95 07/02/17 08:00 97.7 79 16 85/49 (61) 96 I/O 07/02/17 07/02/17 07/02/17 07/03/17 07/03/17 07/03/17 07:00 15:00 23:00 07:00 15:00 23:00 Intake Total 240 ml 600 ml Balance 240 ml 600 ml Intake Oral 240 ml 600 ml # Voids 0 2 # Bowel Movements 0 Result Diagram: 07/01/17 0500 07/01/17 0500 Imaging Last 72 hours Impressions Shoulder X-Ray 06/19/171999 Signed Impressions: Service Date/Time: Monday, June 19, 2017 14:20 - CONCLUSION: 1. Minimally displaced fracture through the proximal left humerus. Cristi Rapp MD Upper Extremity CT 06/19/17443 Signed Impressions: Service Date/Time: Monday, June 19, 2017 03:42 - CONCLUSION: 1. Comminuted proximal humeral fracture without dislocation. 5 mm of separation of the fracture fragments. Bautista Zavala Jr., MD Lower Extremity CT 06/19/174 Signed Impressions: Service Date/Time: Monday, June 19, 2017 03:47 - CONCLUSION: 1. Comminuted fractures involving the lateral tibial plateau as well as the proximal tibial metadiaphysis and fibular diaphysis. Details given above. 2. Hemarthrosis. Bautista Zavala Jr., MD Tibia/Fibula X-Ray 06/19/17 0000 Signed Impressions: Service Date/Time: Monday, June 19, 2017 13:36 - CONCLUSION: 1. Comminuted fracture involving the proximal tibia and fibula. Cristi Rapp MD Shoulder X-Ray 06/19/17 0000 Signed Impressions: Service Date/Time: Monday, June 19, 2017 00:00 - CONCLUSION: Successful reduction of the previously seen anterior dislocation. Acute fracture of the greater tuberosity. Bautista Zavala Jr., MD Pelvis X-Ray 06/18/172328 Signed Impressions: Service Date/Time: Sunday, June 18, 2017 23:10 - CONCLUSION: Unremarkable examination of the pelvis. Bautista Zavala Jr., MD Head CT 06/18/172328 Signed Impressions: Service Date/Time: Sunday, June 18, 2017 23:40 - CONCLUSION: Normal examination. Bautista Zavala Jr., MD Chest X-Ray 06/18/172328 Signed Impressions: Service Date/Time: Sunday, June 18, 2017 23:10 - CONCLUSION: 1. Left proximal humeral fracture. 2. No acute intrathoracic abnormality. Bautista Zavala Jr., MD Chest CT 06/18/172328 Signed Impressions: Service Date/Time: Sunday, June 18, 2017 23:45 - CONCLUSION: 1. Acute fracture of the left proximal humerus partially seen. 2. No acute intrathoracic abnormality. Bautista Zavala Jr., MD Cervical Spine CT 06/18/172328 Signed Impressions: Service Date/Time: Sunday, June 18, 2017 23:40 - CONCLUSION: Normal examination. Bautista Zavala Jr., MD Abdomen/Pelvis CT 06/18/172328 Signed Impressions: Service Date/Time: Sunday, June 18, 2017 23:45 - CONCLUSION: 1. No acute outer mality. 2. Trace amount of free fluid within the cul-de-sac which is within the physiologic range. Bautista Zavala Jr., MD Last 24 hours Impressions Shoulder X-Ray 06/19/17 0000 Signed Impressions: Service Date/Time: Monday, June 19, 2017 00:00 - CONCLUSION: Successful reduction of the previously seen anterior dislocation. Acute fracture of the greater tuberosity. Bautista Zavala Jr., MD Pelvis X-Ray 06/18/172328 Signed Impressions: Service Date/Time: Sunday, June 18, 2017 23:10 - CONCLUSION: Unremarkable examination of the pelvis. Bautista Zavala Jr., MD Head CT 06/18/172328 Signed Impressions: Service Date/Time: Sunday, June 18, 2017 23:40 - CONCLUSION: Normal examination. Bautista Zavala Jr., MD Chest X-Ray 06/18/172328 Signed Impressions: Service Date/Time: Sunday, June 18, 2017 23:10 - CONCLUSION: 1. Left proximal humeral fracture. 2. No acute intrathoracic abnormality. Bautista Zavala Jr., MD Chest CT 06/18/172328 Signed Impressions: Service Date/Time: Sunday, June 18, 2017 23:45 - CONCLUSION: 1. Acute fracture of the left proximal humerus partially seen. 2. No acute intrathoracic abnormality. Bautista Zavala Jr., MD Cervical Spine CT 06/18/172328 Signed Impressions: Service Date/Time: Sunday, June 18, 2017 23:40 - CONCLUSION: Normal examination. Bautista Zavala Jr., MD Abdomen/Pelvis CT 06/18/172328 Signed Impressions: Service Date/Time: Sunday, June 18, 2017 23:45 - CONCLUSION: 1. No acute outer mality. 2. Trace amount of free fluid within the cul-de-sac which is within the physiologic range. Bautista Zavala Jr., MD Objective Remarks LLE: dressings clean and dry. intact. +CKS. Distally intact sensation good capillary refills. Active dorsiflexion plantar flexion foot LUE: +sling/swathe. NVI. Full extension and flexion of all fingers Assessment & Plan Assessment and Plan 1) Left Proximal Tibial Shaft Fx with Tibial Plateau Fx s/p removal of exfix and ORIF - POD #4 -NWB -CKS at all times -no quad sets, leg lifts, quad sets, strengthening -PROM 0-90 deg -out of bed today more, anticipate discharge home with home health Sunday -f/u with Viviana or [facility] in 2 weeks 2) Left Proximal Humerus Fx with dislocation s/p Reduction and greater tuberosity fx -Continue conservative measures and treatment -maintain sling/swathe -NWB X-rays today to evaluate fracture Case management for discharge planning bacitracin for all abrasions daily Shreyas Gustafson Jul 03, 2017 06:42
[2017-07-03] MEDS ORDERED: diphenhydrAMINE HCL 25 MG CAP PO PRN (07:45)
[2017-07-03] MEDS: DOCUSATE SODIUM 50 MG/SENNA 8.6 MG TAB PO SCH ×2 (08:51→19:48)
[2017-07-03] MEDS: POLYETHYLENE GLYCOL 17 GM PKG PO SCH ×2 (08:51→09:00)
[2017-07-03] MEDS: LACTULOSE SYRUP 20 GM/30 ML CUP PO SCH (08:51)
[2017-07-03] MEDS: MAGNESIUM HYDROXIDE SUSP 30 ML CUP PO SCH ×2 (08:51→19:48)
[2017-07-03] MEDS: GABAPENTIN 300 MG CAP PO SCH ×3 (08:51→18:38)
[2017-07-03] MEDS: SODIUM CHLORIDE 0.9% FLUSH 5 ML FLUSH IVF SCH ×2 (08:52→19:47)
[2017-07-03] MEDS: FAMOTIDINE 20 MG TAB PO SCH ×2 (08:52→19:46)
[2017-07-03] MEDS: traZODone HCL 50 MG TAB PO SCH ×2 (08:52→19:48)
[2017-07-03] MEDS: CHOLECALCIFEROL (VIT D3) 1000 UNIT TAB PO SCH (08:52)
[2017-07-03] MEDS: CALCIUM/VITAMIN D 250 MG/125 U TAB PO SCH ×3 (08:52→18:38)
[2017-07-03] MEDS: BACITRACIN TOP OINT 15 GM TUBE TOPICAL SCH ×2 (08:54→08:58)
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
== END 2017-07-04 | disposition home or self-care (01) | DRG 493 ==
LOC: NEPI 23:17 → NEDA 06-19 00:45 → EDBD 06-19 00:45 → NEDA 06-19 04:47 → NEDH 06-19 04:47 → N06A 06-19 06:45
PROVIDERS: ADMIT Surgery; ATTEND Surgery
PROC: 0RSKXZZ Reposition Left Shoulder Joint, External Approach (ICD-10-PCS; 2017-06-19)
PROC: 0QSH35Z Reposition Left Tibia with External Fixation Device, Percutaneous Approach (ICD-10-PCS; principal; 2017-06-19 12:51)
PROC: 0T9B70Z Drainage of Bladder with Drainage Device, Via Natural or Artificial Opening (ICD-10-PCS; 2017-06-24)
PROC: 0QSH04Z Reposition Left Tibia with Internal Fixation Device, Open Approach (ICD-10-PCS; 2017-06-29)
PROC: 0QPHX5Z Removal of External Fixation Device from Left Tibia, External Approach (ICD-10-PCS; 2017-06-29)
DX: S42.252A Displaced fracture of greater tuberosity of left humerus, initial encounter for closed fracture (principal); S82.292A Other fracture of shaft of left tibia, initial encounter for closed fracture; S82.142A Displaced bicondylar fracture of left tibia, initial encounter for closed fracture; V28.4XXA Motorcycle driver injured in noncollision transport accident in traffic accident, initial encounter; Y93.89 Activity, other specified; Y99.9 Unspecified external cause status; S43.015A Anterior dislocation of left humerus, initial encounter; Z88.0 Allergy status to penicillin; Y92.410 Unspecified street and highway as the place of occurrence of the external cause; G89.29 Other chronic pain; J45.909 Unspecified asthma, uncomplicated; G43.909 Migraine, unspecified, not intractable, without status migrainosus; F41.9 Anxiety disorder, unspecified; S60.512A Abrasion of left hand, initial encounter; S50.812A Abrasion of left forearm, initial encounter; S80.212A Abrasion, left knee, initial encounter; S80.211A Abrasion, right knee, initial encounter; S30.811A Abrasion of abdominal wall, initial encounter; R33.9 Retention of urine, unspecified
CPT/HCPCS: 23650; 29505; 70450; 71010; 71260; 72125; 72170; 73020; 73030; 73200; 73590; 73700; 74177; 76000; 76937; 80048; 80053; 80307; 81001; 82435; 82565; 82652; 82947; 84132; 84295; 84520; 84702; 85025; 85610; 85730; 86850; 86900; 86901; 86920; 90471; 90715; 94150; 94640; 94667; 94668; 96374; 96375; 99152; 99153; 99291; C1713; G0390; J0131; J0690; J1100; J1170; J1200; J1580; J1650; J1885; J2175; J2250; J2270; J2370; J2405; J2710; J3010; J3370; J7030; J7050; J7120; L1830; L8699; Q0163; Q9967